=== PATIENT | female | born 1960 | race Caucasian/White ===

== ENCOUNTER → 2022-02-04 | Outpatient (CLI) | payer BC, SELFPAY ==
[2022-02-04 12:35] LABS: Absolute Neutrophil Count 3.3 X10^3/uL (2.0-7.7); Basophil# 0.05 X10^3/uL; Basophil% 0.8 % (0-1); Eosinophil# 0.11 X10^3/uL; Eosinophils% 1.8 % (0-5); Hematocrit 43.9 % (37-47); Hemoglobin 14.3 g/dL (12.0-15.0); Lymphocyte % 33.4 % (19-41); Mean Corp Hgb Conc 32.6 g/dL (32-36); Mean Corpuscular Hgb 29.8 pg (27.0-32.0); Mean Corpuscular Volume 91.5 fL (81-99); Mean Platelet Vol. 10.6 fl (6.2-12.0); Monocyte# 0.46 X10^3/uL; Monocyte% 7.7 % (0-10); NRBC Flagged by Analyzer 0 % (0-5); Neutrophil # 3.34 X10^3/uL (2.7-7.7); Platelet Count 274 K/mm3 (150-450); RBC Distribution Width CV 11.9 % (11.6-14.6); RBC Distribution Width SD 39.5 fl (35.1-43.9)
[2022-02-04 12:58] LABS: AST(SGOT) 15 U/L (15-37); Alanine Aminotransfer ALT/SGPT 35 U/L (13-56); Albumin, Serum 4.2 g/dL (3.2-5.0); Alkaline Phosphatase 67 U/L (45-117); Anion Gap 5 (5-15); BUN 17 mg/dL (7-18); BUN/Creat Ratio 21.2 RATIO (10-20); Calcium,Total 9.5 mg/dL (8.5-10.1); Chloride 104 mmol/L (98-107); Cholesterol 247 mg/dL (200); EST Glomerular Filtration Rate 78 mL/min (>60); Est Glom Filt Rate - Afr Amer 94 mL/min (>60); Glucose 104 mg/dL (74-106); High Density Lipoprotein 51 mg/dL; Protein, Total 8.2 g/dL (6.4-8.2); Sodium Level 140 mmol/L (136-145); Thyroid Stim Hormone (TSH) 1.91 uIU/mL (0.358-3.74); Triglycerides 119 mg/dL; Very Low Density Lipoprotein 24 mg/dL (5-40)
[2022-02-04 16:57] LABS: Vitamin D,25 Hydroxy 43.4 ng/mL
== END | disposition home or self-care (01) ==
LOC: MTLAB 09:45
PROVIDERS: PCP Family Medicine; Referring Provider Family Medicine; Visit Provider Family Medicine
DX: Z00.00 Encounter for general adult medical examination without abnormal findings (principal); R53.83 Other fatigue; E55.9 Vitamin D deficiency, unspecified
CPT/HCPCS: 36415; 80053; 80061; 82306; 84443; 85025

== ENCOUNTER → 2022-12-13 | Outpatient (CLI) | payer BC, SELFPAY ==
[2022-12-13 18:22] LABS: Ferritin 106 ng/mL (8-252)
[2022-12-15 14:09] LABS: Zinc, WHOLE BLOOD 616 ug/dL (440-860)
== END | disposition home or self-care (01) ==
LOC: BFHLAB 14:24
PROVIDERS: PCP Family Medicine; Referring Provider Family Medicine; Visit Provider Family Medicine
DX: L60.9 Nail disorder, unspecified (principal); E63.9 Nutritional deficiency, unspecified
CPT/HCPCS: 36415; 82728; 84630

== ENCOUNTER → 2024-03-12 | Outpatient (CLI) | payer BC, SELFPAY ==
--- NOTE | 2024-03-12 17:22 | RAD_ITS ---
STUDY: X-RAY - RIGHT FOOT CLINICAL: Female, 63 years old. PAIN TECHNIQUE: 3 view(s) of the foot. COMPARISON: None. FINDINGS: Normal talus, calcaneus, and tarsal bones. Small plantar calcaneal enthesophyte. 5 mm type I accessory navicular bone. Normal visualized subtalar, talonavicular, calcaneocuboid, tarsal and tarsometatarsal articulations. Normal metatarsi. There is degenerative arthrosis of the metatarsophalangeal joint of the hallux with a hallux valgus deformity. Normal tibial and fibular sesamoid bones. Normal interphalangeal joint of the great toe. Normal phalanges of the great toe. Normal second through fifth metatarsophalangeal joints. Normal interphalangeal joints and phalanges of the lesser toes. The soft tissue structures are unremarkable. RAD/Foot min 3 Views IMPRESSION: Mild hallux valgus deformity. Electronically Signed: Liam Gomes MD at 12:31 EDT ,
== END | disposition home or self-care (01) ==
LOC: MTRAD 17:20
PROVIDERS: PCP Family Medicine; Referring Provider Podiatrist; Visit Provider Podiatrist
DX: M20.11 Hallux valgus (acquired), right foot (principal)
CPT/HCPCS: 73630

== ENCOUNTER → 2024-08-15 | Outpatient (CLI) | payer BC, SELFPAY ==
[2024-08-15 18:04] LABS: Uric Acid 4.7 mg/dL (2.6-6.0)
== END | disposition home or self-care (01) ==
LOC: BFHLAB 16:07
PROVIDERS: PCP Family Medicine; Visit Provider Family Medicine
DX: M10.9 Gout, unspecified (principal)
CPT/HCPCS: 36415; 84550

== ENCOUNTER 2025-02-14 19:56 | Emergency (ER) | payer BC, SELFPAY ==
[2025-02-14 19:57] VITALS: BP 166/135; PULSE 155; RESP 18; TEMP 36.8; O2SAT 99; BMI 30.4
[2025-02-14 21:00] VITALS: BP 141/75; PULSE 94; O2SAT 100
--- OUTSIDE RECORDS SUMMARY | 2025-02-14 21:01 | XMS RPT_ITS | CCD ---
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 Name Role Phone Unavailable Primary Care Provider UnavailJustine Mike Referring Unavailable Justine Walsh Attending Unavailable Dylon Saab Primary Care Unavailable Dylon Saab Attending Unavailable Dylon Saab Primary Care Unavailable Medications Current Medications Medication Drug Class(es) Dates Sig (Normalized) Sig (Original) nitrofurantoin, macrocrystals 25 mg / nitrofurantoin, monohydrate 75 mg oral capsule (2 sources) Nitrofuran Antibacterial Start: 12-25-2022 End: 12-30-2022 take 1 capsule by mouth twice daily nitrofurantoin monohydrate and macrocrystal (MACROBID) 100 mg capsule Take 1 capsule by mouth twice daily for 5 days. 10 capsule 0 12/25/2022 12/30/2022 Active Comment on above: Take 1 capsule by [facility] twice daily for 5 days. Completed/Discontinued Medications Medication Drug Class(es) Dates Sig (Normalized) Sig (Original) allopurinol 100 mg oral tablet (2 sources) Xanthine Oxidase Inhibitor Start: 11-03-2022 take 1 tablet by mouth once daily allopurinol (ZYLOPRIM) 100 mg tablet Take 100 mg by mouth once daily. 0 11/03/2022 Active Comment on above: Take 100 mg by mouth once daily. escitalopram 20 mg oral tablet (2 sources) Serotonin Reuptake Inhibitor Start: 12-02-2022 take 1 tablet by mouth once daily at bedtime escitalopram oxalate (LEXAPRO) 20 mg tablet Take 20 mg by mouth daily at bedtime. 0 12/02/2022 Active Comment on above: Take 20 mg by mouth daily at bedtime. terbinafine 250 mg oral tablet (2 sources) Allylamine Antifungal Start: 12-13-2022 take 1 tablet by mouth once daily terbinafine HCl (LAMISIL) 250 mg tablet Take 250 mg by mouth once daily. 0 12/13/2022 Active Comment on above: Take 250 mg by mouth once daily. Problems Problem Classification Problem Date Documented Da te Episodic/Chronic Acquired foot deformities (1 source) Hallux valgus (acquired), right foot; Translations: [Hallux valgus (acquired), right foot] Onset: 04-04-2024 Chronic Fever of unknown origin (1 source) Fever; Translations: [Fever, unspecified] Episodic Gout and other crystal arthropathies (1 source) Gout, unspecified; Translations: [Gout, unspecified] Onset: 09-09-2024 Chronic Results Test Name Value Interpretation Reference Range Facility Uric Acidon 08-15-2024 URIC 4.7 mg/dL Normal 2.6-6.0 [facility] Comment on above: Result Comment: The drugs N-Acetylcysteine and Metamizole may falsely depress this assay. Performed By: #### L [id number] #### [facility] [address] [place], [address] Foot min 3 Viewson 4 Foot min 3 Views [facility] Imaging Services [address] [place] [address] Foot min 3 Views MR#: [id number] Acct: [id number] Name: ROSALINE MACIAS Rep #: [id number] : 1960 F 63 From: Liam Gomes MD PCP: Dr. Dylon Saab, DO Status: REG CLI Study: Foot min 3 Views Date of Exam: 03/12/24 Exam# [id number] Ordering Dr: Justine Walsh Reji [id number] STUDY: X-RAY - RIGHT FOOT CLINICAL: Female, 63 years old. PAIN TECHNIQUE: 3 view(s) of the foot. COMPARISON: None. FINDINGS: Normal talus, calcaneus, and tarsal bones. Small plantar calcaneal enthesophyte. 5 mm type I accessory navicular bone. Normal visualized subtalar, talonavicular, calcaneocuboid, tarsal and tarsometatarsal articulations. Normal metatarsi. There is degenerative arthrosis of the metatarsophalangeal joint of the hallux with a hallux valgus deformity. Normal tibial and fibular sesamoid bones. Normal interphalangeal joint of the great toe. Normal phalanges of the great toe. Normal second through fifth metatarsophalangeal joints. Normal interphalangeal joints and phalanges of the lesser toes. The soft tissue structures are unremarkable. RAD/Foot min 3 Views IMPRESSION: Mild hallux valgus deformity. Electronically Signed: Liam Gomes MD at 12:31 EDT , CC: JOE Walsh; Dr. Dylon Saab DO Perfume Maker: Signed Normal [facility] 12-26-2022 Brenco[facility] Telephone (UCWSTR) -------- ROSALINE MACIAS ([id number]) 1960 F Date Time Provider Department 12/26/22 [facility]ARTIN K[facility] During your visit today, we recorded the following information about you: DENITA Zamora 12/26/2022 2:03 PM Signed Please let patient know urine culture came back negative for bacterial growth. She may stop antibiotic. Please follow-up with PCP for continued fevers. Herminio Johnston 12/26/2022 2:14 PM Signed Patient given results and verbalized understanding of instructions given. Herminio Johnston Allergies As of Date: 12/26/2022 (Not on File) Date Reviewed: 12/25/2022 Reviewed by: Herminio Johnston - Fully Assessed Reason for Visit: Results [95] Prescriptions as of 12/26/2022 - allopurinol (ZYLOPRIM) 100 mg tablet Take 100 mg by mouth once daily. - escitalopram oxalate (LEXAPRO) 20 mg tablet Take 20 mg by mouth daily at bedtime. - terbinafine HCl (LAMISIL) 250 mg tablet Take 250 mg by mouth once daily. - nitrofurantoin monohydrate and macrocrystal (MACROBID) 100 mg capsule Take 1 capsule by mouth twice daily for 5 days. Problem List As Of Date: 12/26/2022 (None) Encounter Status:Closed by HERMINIO JOHNSTON on 12/26/22 Normal [facility] Bacteria Ur Culton 3 Bacteria identified Cx Nom (U) ORGANISM ID: 1 10,000 -<50,000 CFU/ml Normal urogenital weston Normal [facility] Comment on above: Performed By: #### 6 30-4 #### [facility] CLIA [id number] [address] [place] [address] OF [facility] CNOVon 12-25-2022 CNOV Office Visit (UCWSTR ) -------- ROSALINE MACIAS ([id number]) 1960 F Date Time Provider Department 12/25/22 1:15 PM MARTIN KAN [facility] During your visit today, we recorded the following information about you: Temperature Pulse Respiration Blood pressure 98.5 degrees 104/minute 16/minute 124/80 Weight 74.8 kg DENITA Zamora 12/25/2022 1:40 PM Signed This note was created using Hatchriter. Subjective Rosaline Macias is a 62 year old female. HPI 62-year-old female presents for intermittent fevers for the past 3 days. Patient states that she has been having fevers on and off for the past 3 days. Tmax 103 ?F. Last had a fever yesterday. No fever today. Temperature 98.5 ?F here. Has not taken any Tylenol or Motrin today. Patient denies any cough, congestion, ear pain, sore throat or URI symptoms. No abdominal pain, vomiting or diarrhea. She states she was started on terbinifine about a week ago for thumbnail fungus, and had some nausea and decreased appetite with that medication, but that is now improved. Otherwise, she has no symptoms associated with her fever other than some chills. No urinary complaints. No sick contacts. No known exposure to COVID. No past medical history on file. No past surgical history on file. ALLERGIES Patient has no allergy information on record. MEDICATIONS allopurinol (ZYLOPRIM) 100 mg tablet Take 100 mg by mouth once daily. escitalopram oxalate (LEXAPRO) 20 mg tablet Take 20 mg by mouth daily at bedtime. terbinafine HCl (LAMISIL) 250 mg tablet Take 250 mg by mouth once daily. No family history on file. Review of Systems Constitutional: Positive for chills and fever. HENT: Negative for congestion, ear pain and sore throat. Respiratory: Negative for cough and shortness of breath. Cardiovascular: Negative for chest pain. Gastrointestinal: Positive for nausea. Negative for abdominal pain, diarrhea and vomiting. Objective BP 124/80 Pulse 104 Temp 36.9 ?C (98.5 ?F) Resp 16 Wt 74.8 kg (164 lb 12.8 oz) SpO2 97% Physical Exam Vitals and nursing note reviewed. Constitutional: General: She is not in acute distress. Appearance: Normal appearance. She is not toxic-appearing. HENT: Right Ear: Tympanic membrane and ear canal normal. Left Ear: Tympanic membrane and ear canal normal. Nose: Nose normal. Mouth/Throat: Mouth: Mucous membranes are moist. Pharynx: No oropharyngeal exudate or posterior oropharyngeal erythema. Eyes: Conjunctiva/sclera: Conjunctivae normal. Cardiovascular: Rate and Rhythm: Normal rate and regular rhythm. Pulmonary: Effort: Pulmonary effort is normal. Breath sounds: Normal breath sounds. Abdominal: General: Abdomen is flat. Palpations: Abdomen is soft. Tenderness: There is no abdominal tenderness. There is no right CVA tenderness, left CVA tenderness or guarding. Neurological: Mental Status: She is alert. Assessment and Plan ASSESSMENT/PLAN: 1. Fever, unspecified fever cause - ICD9: 780.60, ICD10: R50.9 - UA DIP, URINE (POC) -UA reveals small blood and trace leuk esterase. We will send urine for culture. -Rx for Macrobid. -Unsure of cause of fever. She is afebrile today. Advised Tylenol/Motrin as needed for fever. May be due to possible UTI? but unsure as patient is having no urinary symptoms at this point. We are treating UTI with Macrobid. - Patient will need follow-up with PCP this week if fevers continue. She understands. -Declines COVID/flu test. -Abdomen is soft and nontender, no CVA tenderness. Low suspicion for acute surgical abdomen or pyelonephritis at this time. - URINE CULTURE Diagnosis and treatment plan were discussed and questions were answered to the patient's satisfaction. Pt acknowledged understanding of concepts and follow up plan. Specific signs and symptoms that would indicate the need for higher level of care were discussed in detail warranting prompt ER evaluation. DENITA Zamora Allergies As of Date: 12/25/2022 (Not on File) Date Reviewed: 12/25/2022 Reviewed by: Herminio Johnston - Fully Assessed Reason for Visit: Fever [47] Cmt: x 4 days, started terbinafine on Monday, symptoms started but no fever Primary Visit Diagnosis:Fever, unspecified fever cause [R50.9] Order(s):UA DIP, URINE (POC) [[id number]] Order #: [id number] #:[id number] 210-LAB URINE CULTURE [SQURCUL] Order #: [id number] FUTURE nitrofurantoin monohydrate and macrocrystal (MACROBID) 100 mg capsuleTake 1 capsule by mouth twice daily for 5 days.Disp: 10 capsuleRfl: 0 URINE CULTURE [SQURCUL] Order #: [id number]. #:[id number] Prescriptions as of 12/25/2022 - allopurinol (ZYLOPRIM) 100 mg tablet Take 100 mg by mouth once daily. - escitalopram oxalate (LEXAPRO) 20 mg tablet Take 20 mg by mouth daily at bedtime. - terbinafine HCl (LAMISIL) 250 mg tablet Take (more content not included)... Normal [facility] UA DIP, URINE (POC)on 2022 BILIRUBIN UA (POCT) Negative Negative [facility] CLARITY UA (POCT) Clear [facility] COLOR UA (POCT) Yellow [facility] GLUCOSE UA (POCT) Negative Negative mg/dL [facility] HEMOGLOBIN/BLOOD UA (POCT) Small Abnormal Negative [facility] KETONE UA (POCT) Negative Negative mg/dL [facility] LEUKOCYTES UA (POCT) Trace Abnormal Negative [facility] NITRITE UA (POCT) Negative Negative [facility] PH UA (POCT) 5.5 4.5 - 8.0 [facility] Protein Ql (U) Negative Negative mg/dL [facility] SPECIFIC GRAVITY UA (POCT) <=1.005 Abnormal 1.005 - 1.030 [facility] UROBILINOGEN UA (POCT) 0.2 E.U./dL Normal E.U./dL [facility] Absolute lymphocyte counton 02-04-2022 Lymphocytes Auto (Unsp spec) [#/Vol] 2.00 10*3/uL 0.83-4.51 [facility] Work Phone: Basophil percentageon 2021 Basophils/100 WBC (Bld) 0.8 % 0-1 [facility] Work Phone: Bilirubin [Mass/Vol] 0.30 mg/dL 0.20-1.00 [facility] Work Phone: Comment on above: For patients on eltr ombopag therapy, use of [employer] TBIL is not recommended. Chloride [Moles/Vol] 104 mmol/L 98-107 [facility] Work Phone: Cholesterol [Mass/Vol] 247 mg/dL <200 [facility] Work Phone: Comment on above: <200 mg/dL Desirable 200-240 mg/dL Borderline >240 mg/dL High Risk Eosinophils/100 WBC (Bld) 1.8 % 0-5 [facility] Work Phone: Glucose [Mass/Vol] 104 mg/dL 74-106 [facility] Work Phone: Comment on above: Fasting Glucose resu lt from 100 to 125 mg/dL suggests IMPAIRED HOMEOSTASIS per A.D.A. criteria. Neutrophils (Bld) [#/Vol] 3.3 10*3/uL 2.0-7.7 [facility] Work Phone: Neutrophils/100 WBC (Bld) 56.0 % 47-70 [facility] Work Phone: Potassium [Moles/Vol] 4.0 mmol/L 3.5-5.1 [facility] Work Phone: Protein [Mass/Vol] 8.2 g/dL 6.4-8.2 [facility] Work Phone: Sodium [Moles/Vol] 140 mmol/L 136-145 [facility] Work Phone: Triglyceride [Mass/Vol] 119 mg/dL <199 [facility] Work Phone: Comment on above: The drugs N-Acetylcy steine and Metamizole may falsely depress this assay.Serum Triglycerides Reference Interval Normal <150 mg/dL Borderline high 150 - 199 mg/dL High 200 - 499 mg/dL Very High > or = 500 mg/dL WBC (Bld) [#/Vol] 6.0 10*3/uL 4.4-11.0 [facility] Work Phone: Blood erythrocytes count (nu mber/volume)on 02-04-2022 RBC (Bld) [#/Vol] 4.80 10*6/uL 4.2-5.4 [facility] Work Phone: Blood hemoglobin measurement (mass/volume)on 02-04-2022 Hemoglobin (Bld) [Mass/Vol] 14.3 g/dL 12.0-15.0 [facility] Work Phone: Blood lymphocytes/100 leukoc yteson 02-04-2022 Lymphocytes/100 WBC (Bld) 33.4 % 19-41 [facility] Work Phone: Blood monocytes/100 leukocyt eson 02-04-2022 Monocytes/100 WBC (Bld) 7.7 % 0-10 [facility] Work Phone: Blood platelet mean volumeon 02-04-2022 Platelet mean volume (Bld) [Entitic vol] 10.6 fL 6.2-12.0 [facility] Work Phone: Determination of erythrocyte mean corpuscular volume (MCV)on 02-04-2022 MCV (RBC) [Entitic vol] 91.5 fL 81-99 [facility] Work Phone: Hematocrit Auto (Bld) [Volum e fraction]on 02-04-2022 Hematocrit (Bld) [Volume fraction] 43.9 % 37-47 [facility] Work Phone: Laboratory - Chemistry and C hemistry - challengeon 02-04-2022 ALP [Catalytic activity/Vol] 67 U/L 45-117 [facility] Work Phone: ALT [Catalytic activity/Vol] 35 U/L 13-56 [facility] Work Phone: CO2 [Moles/Vol] 31.0 mmol/L 21.0-32.0 [facility] Work Phone: Globulin (S) [Mass/Vol] 4.0 g/dL 2.2-4.2 [facility] Work Phone: Urea nitrogen/Creatinin e [Mass ratio] 21.2 mg/mg 10-20 [facility] Work Phone: Laboratory - Hematology and Cell countson 02-04-2022 Erythrocyte distribution width (RBC) [Entitic vol] 39.5 fL 35.1-43.9 [facility] Work Phone: Erythrocyte distribution width (RBC) [Ratio] 11.9 % 11.6-14.6 [facility] Work Phone: Immature granulocytes/100 WBC (Bld) 0.300 % 0.0-0.9 [facility] Work Phone: Comment on above: IG% - Immature Granu locytes (promyelocytes, myelocytes and metamyelocytes) > 1% indicates that a LEFT SHIFT is Present. MCH (RBC) [Entitic mass] 29.8 pg 27.0-32.0 [facility] Work Phone: Nucleated RBC/100 WBC (Bld) [Ratio] 0 % 0-5 [facility] Work Phone: MCHC Auto (RBC) [Mass/Vol]on 02-04-2022 MCHC (RBC) [Mass/Vol] 32.6 g/dL 32-36 [facility] Work Phone: No Panel Informationon 02-04 Estimated GFR (MDRD) Amer 94 mL/min >60 [facility] Work Phone: Comment on above: GFR Calc Estimated GFR (MDRD) Non-Af Amer 78 mL/min >60 [facility] Work Phone: Comment on above: Non- GFR Calc Thyroid Stimulating Hormone (TSH) 1.91 uIU/mL 0.358-3.74 [facility] Work Phone: Vitamin D 25-Hydroxy 43.4 ng/mL [facility] Work Phone: Comment on above: Vitamin D 25(OH) Sta tus Range Deficiency <20 ng/mL (50nmol/L) Insufficiency 20 - 30 ng/mL (50 - 75 nmol/L) Sufficiency 30 - 100 ng/mL (75 - 250 nmol/L) Toxicity >100 ng/mL (>250 nmol/L) Platelets bldon 02-04-2022 Platelets (Bld) [#/Vol] 274 10*3/uL 150-450 [facility] Work Phone: Serum or plasma albumin mary alice urement (mass/volume)on 02-04-2022 Albumin [Mass/Vol] 4.2 g/dL 3.2-5.0 [facility] Work Phone: Serum or plasma albumin/glob ulin mass ratioon 02-04-2022 Albumin/Globulin [Mass ratio] 1.0 {ratio} 0.9-2.4 [facility] Work Phone: Serum or plasma calcium mary alice urement (mass/volume)on 02-04-2022 Calcium [Mass/Vol] 9.5 mg/dL 8.5-10.1 [facility] Work Phone: Serum or plasma cholesterol in HDL measurement (mass/volume)on 02-04-2022 Cholesterol in HDL [Mass/Vol] 51 mg/dL >40 [facility] Work Phone: Comment on above: The drugs N-Acetylcy steine and Metamizole may falsely depress this assay. Reference Range HDL <40 mg/dL Low HDL Cholesterol HDL >or= 60 mg/dL High HDL Cholesterol Serum or plasma cholesterol in VLDL measurement (mass/volume)on 02-04-2022 Cholesterol in VLDL [Mass/Vol] 24 mg/dL 5-40 [facility] Work Phone: Serum or plasma creatinine m easurement (mass/volume)on 02-04-2022 Creatinine [Mass/Vol] 0.80 mg/dL 0.55-1.02 [facility] Work Phone: Comment on above: The validity of the calculated GFR & GFRAA in patients over 70 years has not been determined. Clinical correlation is essential. Serum or plasma low density lipoprotein (LDL) cholesterol measurement (mass/volume)on 02-04-2022 Cholesterol in LDL [Mass/Vol] 172 mg/dL 0-130 [facility] Work Phone: Serum or plasma urea nitroge n measurement (mass/volume)on 02-04-2022 Urea nitrogen [Mass/Vol] 17 mg/dL 7-18 [facility] Work Phone: Thin prep Papanicolaou smear with manual screeningon 02-04-2022 Thin prep Papanicolaou smear with manual screening 15 U/L 15-37 [facility] Work Phone: Thin prep Papanicolaou smear with manual screening 5 5-15 [facility] Work Phone: Vital Signs Date Time Vital Sign Value Performing Clinician Faci lity 12-25-2022 13:21-0400 Body temperature 98.49 [degF] Krislyn Aberegg PA Work Phone: [facility] 12-25-2022 13:21-0400 Body weight 74.75 kg Krislyn Aberegg PA Work Phone: [facility] 12-25-2022 13:21-0400 Diastolic blood pressure 80 mm[Hg] Krislyn Aberegg PA Work Phone: [facility] 12-25-2022 13:21-0400 Heart rate 104 /min Krislyn Aberegg PA Work Phone: [facility] 12-25-2022 13:21-0400 Respiratory rate 16 /min Krislyn Aberegg PA Work Phone: [facility] 12-25-2022 13:21-0400 SaO2% (BldA) [Mass fraction] 97 % Krislyn Aberegg PA Work Phone: [facility] 12-25-2022 13:21-0400 Systolic blood pressure 124 mm[Hg] Krislyn Aberegg PA Work Phone: [facility] Encounters Encounter Date Encounter Type Care Provider Facility Start: 08-15-2024 End: 08-15-2024 ambulatory [facility] Facility:[facility] Start: 03-12-2024 End: 03-12-2024 ambulatory [facility] Facility:[facility] Start: 12-26-2022 Telephone encounter Lennoxn P Aberegg PA Work Phone: [facility] Comment on above: Results Start: 12-25-2022 End: 12-25-2022 ambulatory Facility:[facility] Start: 12-25-2022 End: 12-25-2022 Patient encounter procedure Krissreen P Aberegg PA Work Phone: [facility] Comment on above: Fever, unspecified f ever cause (Primary Dx) Start: 02-04-2022 End: 02-04-2022 Patient encounter procedure [facility] [place] Procedures Date Procedure Procedure Detail Performing Clinician Start: 12-25-2022 Urnls dip stick/tabl et rgnt auto w/o microscopy Martin BARGER Work Phone: Plan of Treatment Date Care Activity Detail Author Start: 03-31-2023 Influenza vaccination INFLUENZ A (Season Ended) [facility] Start: 12-25-2022 End: 02-24-2023 Bacteria identified in Urine by Culture URINE CULTURE Microbiology Routine Fever, unspecified fever cause Expected: 12/25/2022, Expires: 02/24/2023 [facility] Work Phone: Comment on above: Expected: 12/25/2022 , Expires: 02/24/2023 Start: 07-31-2022 DEPRESSION ASSESSMENT DEPRESSION ASS ESSMENT [facility] Start: 2012 SHINGRIX VACCINE (1 of 2) SHINGRIX VACCINE (1 of 2) [facility] Start: 2007 COLOGUARD (FIT-DNA) COLOGUARD (FIT-D NA) [facility] Start: 2007 Colonoscopy COLONOSCOPY [facility] Start: 2007 COLORECTAL CANCER SCREENING COLORECTAL CANCER SCREENING [facility] Start: [address] COLONOGRAPHY [facility] Start: 2007 DIABETES SCREEN DIABETES SCREEN [facility] Start: 2007 FECAL OCCULT BLOOD FECAL OCCULT BLOO D [facility] Start: 2007 LIPID SCREEN LIPID SCREEN [facility] Start: 2007 SIGMOIDOSCOPY SIGMOIDOSCOPY [facility] Start: 2002 Mammography MAMMOGRAM [facility] Start: 1992 HPV TESTING HPV TESTING [facility] Start: 1983 PAP TESTING PAP TESTING [facility] Start: 1981 Urine microalbumin profile DTAP,TDAP,TD (1 - Tdap) [facility] Start: 1980 HEPATITIS C SCREENING HEPATITIS C SC REENING [facility] Start: 1980 HIV SCREENING HIV SCREENING [facility] Start: 03-03-1963 COVID-19 VACCINE (#1) COVID-19 VACCI NE (#1) [facility] Payers Date Payer Category Payer Self-pay 2022 Unknown [employer] PPO 2022-Present [phone] [address] [place] [address] PPO [id number] 2019 Unknown [id number] 2016 Unknown [id number] Unknown [id number] Unknown [id number] Social History Date Type Detail Facility Tobacco smoking status NHIS Unknown if ever smoked [facility] Work Phone: Start: 1960 Sex Assigned At Female [facility] Work Phone: Tobacco smoking status NVIS Tobacco smoking consumption unknown [facility] Work Phone: Start: 1960 Sex Assigned At Not on file [facility] Clinic Note 12-26-2022 Telephone Encounter - Herminio Johnston - 12/26/2022 2:14 PM EDTTelephone Encounter - DENITA Zamora - 12/26/2022 2:03 PM EDT Note Date & Type Note Facility 12-26-2022 Miscellaneous Notes Formattin g of this note might be different from the original. Patient given results and verbalized understanding of instructions given. Herminio Johnston Please let patient know urine culture came back negative for bacterial growth. She may stop antibiotic. Please follow-up with PCP for continued fevers. documented in this encounter [facility] Progress note 12-25-2022 Note Date & Type Note Facility 12-25-2022 Note HNO ID: [id number] Author: DENITA Zamora Service: ? Author Type: Physician Nursing Home Social Worker Type: Progress Notes Filed: 12/25/2022 1:40 PM Note Text: This note was created using Hatchriter. Subjective Rosaline Macias is a 62 year old female. HPI 62-year-old female presents for intermittent fevers for the past 3 days. Patient states that she has been having fevers on and off for the past 3 days. Tmax 103 ?F. Last had a fever yesterday. No fever today. Temperature 98.5 ?F here. Has not taken any Tylenol or Motrin today. Patient denies any cough, congestion, ear pain, sore throat or URI symptoms. No abdominal pain, vomiting or diarrhea. She states she was started on terbinifine about a week ago for thumbnail fungus, and had some nausea and decreased appetite with that medication, but that is now improved. Otherwise, she has no symptoms associated with her fever other than some chills. No urinary complaints. No sick contacts. No known exposure to COVID. No past medical history on file. No past surgical history on file. ALLERGIES Patient has no allergy information on record. MEDICATIONS allopurinol (ZYLOPRIM) 100 mg tablet Take 100 mg by mouth once daily. escitalopram oxalate (LEXAPRO) 20 mg tablet Take 20 mg by mouth daily at bedtime. terbinafine HCl (LAMISIL) 250 mg tablet Take 250 mg by mouth once daily. No family history on file. Review of Systems Constitutional: Positive for chills and fever. HENT: Negative for congestion, ear pain and sore throat. Respiratory: Negative for cough and shortness of breath. Cardiovascular: Negative for chest pain. Gastrointestinal: Positive for nausea. Negative for abdominal pain, diarrhea and vomiting. Objective BP 124/80 Pulse 104 Temp 36.9 ?C (98.5 ?F) Resp 16 Wt 74.8 kg (164 lb 12.8 oz) SpO2 97% Physical Exam Vitals and nursing note reviewed. Constitutional: General: She is not in acute distress. Appearance: Normal appearance. She is not toxic-appearing. HENT: Right Ear: Tympanic membrane and ear canal normal. Left Ear: Tympanic membrane and ear canal normal. Nose: Nose normal. Mouth/Throat: Mouth: Mucous membranes are moist. Pharynx: No oropharyngeal exudate or posterior oropharyngeal erythema. Eyes: Conjunctiva/sclera: Conjunctivae normal. Cardiovascular: Rate and Rhythm: Normal rate and regular rhythm. Pulmonary: Effort: Pulmonary effort is normal. Breath sounds: Normal breath sounds. Abdominal: General: Abdomen is flat. Palpations: Abdomen is soft. Tenderness: There is no abdominal tenderness. There is no right CVA tenderness, left CVA tenderness or guarding. Neurological: Mental Status: She is alert. Assessment and Plan ASSESSMENT/PLAN: 1. Fever, unspecified fever cause - ICD9: 780.60, ICD10: R50.9 - UA DIP, URINE (POC) -UA reveals small blood and trace leuk esterase. We will send urine for culture. -Rx for Macrobid. -Unsure of cause of fever. She is afebrile today. Advised Tylenol/Motrin as needed for fever. May be due to possible UTI? but unsure as patient is having no urinary symptoms at this point. We are treating UTI with Macrobid. - Patient will need follow-up with PCP this week if fevers continue. She understands. -Declines COVID/flu test. -Abdomen is soft and nontender, no CVA tenderness. Low suspicion for acute surgical abdomen or pyelonephritis at this time. - URINE CULTURE Diagnosis and treatment plan were discussed and questions were answered to the patient's satisfaction. Pt acknowledged understanding of concepts and follow up plan. Specific signs and symptoms that would indicate the need for higher level of care were discussed in detail warranting prompt ER evaluation. DENITA Zamora [facility] History of Present illness Narrative 12-25-2022 DENITA Zamora - 12/25/2022 1:29 PM EDT Note Date & Type Note Facility 12-25-2022 History of Presen t illness Narrative This note was created using [employer]. Subjective Rosaline Macias is a 62 year old female. HPI 62-year-old female presents for intermittent fevers for the past 3 days. Patient states that she has been having fevers on and off for the past 3 days. Tmax 103 F. Last had a fever yesterday. No fever today. Temperature 98.5 F here. Has not taken any Tylenol or Motrin today. Patient denies any cough, congestion, ear pain, sore throat or URI symptoms. No abdominal pain, vomiting or diarrhea. She states she was started on terbinifine about a week ago for thumbnail fungus, and had some nausea and decreased appetite with that medication, but that is now improved. Otherwise, she has no symptoms associated with her fever other than some chills. No urinary complaints. No sick contacts. No known exposure to COVID. No past medical history on file. No past surgical history on file. ALLERGIES Patient has no allergy information on record. MEDICATIONS allopurinol (ZYLOPRIM) 100 mg tablet Take 100 mg by mouth once daily. escitalopram oxalate (LEXAPRO) 20 mg tablet Take 20 mg by mouth daily at bedtime. terbinafine HCl (LAMISIL) 250 mg tablet Take 250 mg by mouth once daily. No family history on file. Review of Systems Constitutional: Positive for chills and fever. HENT: Negative for congestion, ear pain and sore throat. Respiratory: Negative for cough and shortness of breath. Cardiovascular: Negative for chest pain. Gastrointestinal: Positive for nausea. Negative for abdominal pain, diarrhea and vomiting. Objective BP 124/80 Pulse 104 Temp 36.9 C (98.5 F) Resp 16 Wt 74.8 kg (164 lb 12.8 oz) SpO2 97% Physical Exam Vitals and nursing note reviewed. Constitutional: General: She is not in acute distress. Appearance: Normal appearance. She is not toxic-appearing. HENT: Right Ear: Tympanic membrane and ear canal normal. Left Ear: Tympanic membrane and ear canal normal. Nose: Nose normal. Mouth/Throat: Mouth: Mucous membranes are moist. Pharynx: No oropharyngeal exudate or posterior oropharyngeal erythema. Eyes: Conjunctiva/sclera: Conjunctivae normal. Cardiovascular: Rate and Rhythm: Normal rate and regular rhythm. Pulmonary: Effort: Pulmonary effort is normal. Breath sounds: Normal breath sounds. Abdominal: General: Abdomen is flat. Palpations: Abdomen is soft. Tenderness: There is no abdominal tenderness. There is no right CVA tenderness, left CVA tenderness or guarding. Neurological: Mental Status: She is alert. Assessment and Plan ASSESSMENT/PLAN: 1. Fever, unspecified fever cause - ICD9: 780.60, ICD10: R50.9 - UA DIP, URINE (POC) -UA reveals small blood and trace leuk esterase. We will send urine for culture. -Rx for Macrobid. -Unsure of cause of fever. She is afebrile today. Advised Tylenol/Motrin as needed for fever. May be due to possible UTI? but unsure as patient is having no urinary symptoms at this point. We are treating UTI with Macrobid. - Patient will need follow-up with PCP this week if fevers continue. She understands. -Declines COVID/flu test. -Abdomen is soft and nontender, no CVA tenderness. Low suspicion for acute surgical abdomen or pyelonephritis at this time. - URINE CULTURE Diagnosis and treatment plan were discussed and questions were answered to the patient's satisfaction. Pt acknowledged understanding of concepts and follow up plan. Specific signs and symptoms that would indicate the need for higher level of care were discussed in detail warranting prompt ER evaluation. DENITA Zamora documented in this encounter [facility] Evaluation note Note Date & Type Note Facility Evaluation note No assessment information availa [facility] Work Phone: Evaluation note Note Date & Type Note Facility Evaluation note Diagnosis Fever, unspecified fever cause- Primary documented in this encounter [facility] Summary Purpose Family History No Family History Records FoundNo Family History Records Found Advance Directives No Advanced Directives Records FoundNo Advanced Directives Records Found Additional Source Comments Goals (unrecognized section and content) Goals may be documented in a n alternate section INFORMATION SOURCE (unrecogn ized section and content) DATE CREATED AUTHOR 01/06/2023 [facility] DATE CREATED AUTHOR 'S ORGANIZ ATION 09/10/2024 [facility] Source Comments (unrecognize d section and content) In the event this informatio n is protected by the Federal Confidentiality of Alcohol and Drug Abuse Patient Records regulations: The Federal rules restrict any use of the information to criminally investigate or prosecute any alcohol or drug abuse patient[facility] the event this information is protected by the Federal Confidentiality of Alcohol and Drug Abuse Patient Records regulations: The Federal rules restrict any use of the information to criminally investigate or prosecute any alcohol or drug abuse patient.[facility] Reason for Visit (unrecogniz ed section and content) Reason Comments Fever x 4 days, started te rbinafine on Monday, symptoms started but no fever Reason Comments Results FOR RECORDS PERTAINING TO PATIENTS WHO ARE OR HAVE BEEN ENROLLED IN A CHEMICAL DEPENDENCY/SUBSTANCEABUSE PROGRAM, SOME INFORMATION MAY BE OMITTED. This clinical summary was aggregated from multiple sources. Caution should be exercised in using it in the provision of clinical care. This summary normalizes information from multiple sources, and as a consequence, information in this document may materially change the coding, format and clinical context of patient data. In addition, data may be omitted in some cases. CLINICAL DECISIONS SHOULD BE BASED ON THE PRIMARY CLINICAL RECORDS. [employer] provides no warranty or guarantee of the accuracy or completeness of information in this document.
--- NOTE | 2025-02-14 21:20 | RAD_ITS ---
PROCEDURE: CHEST PA AND LATERAL 02/14/2025 REASON FOR EXAM: SOB TECHNIQUE: CHEST PA AND LATERAL COMPARISON: None. FINDINGS: Lungs/Pleura: Clear. Heart/Mediastinum: Normal in size. Bones/Soft tissues: Mild degenerative changes of the thoracic spine. RAD/Chest PA and Lateral IMPRESSION: No acute cardiopulmonary disease. Reading Location: [id number]
[2025-02-14 21:28] LABS: Hematocrit 45.4 % (37-47); Hemoglobin 15.4 g/dL (12.0-15.0); Immature Granulocytes Count 0.030 X10^3/uL (0.0-0.0); Mean Corp Hgb Conc 33.9 g/dL (32-36); Mean Corpuscular Volume 89.4 fL (81-99); Mean Platelet Vol. 10.4 fl (6.2-12.0); NRBC Flagged by Analyzer 0 % (0-5); Platelet Count 316 K/mm3 (150-450); RBC Distribution Width CV 12.0 % (11.6-14.6); RBC Distribution Width SD 39.3 fl (35.1-43.9); Red Blood Count 5.08 M/mm3 (4.2-5.4); White Blood Count 10.5 K/mm3 (4.4-11.0)
[2025-02-14 21:52] LABS: D-Dimer Quantitative (DVT/PE) 0.30 FEU/ug/m (0.27-0.49)
[2025-02-14 22:00] VITALS: BP 144/81; PULSE 85; RESP 15; O2SAT 99
[2025-02-14 22:09] LABS: Anion Gap 17 (5-15); BUN 9 mg/dL (4-19); BUN/Creat Ratio 9.9 RATIO (10-20); Calcium,Total 10.6 mg/dL (7.6-11.0); Carbon Dioxide 24.7 mmol/L (21.0-32.0); Chloride 98 mmol/L (98-108); Estimated Creatinine Clearance 62.94 ml/min (50-250); Glucose 172 mg/dL (70-99); Magnesium 2.3 mg/dL (1.5-2.2); Potassium 4.1 mmol/L (3.3-5.1)
--- NOTE | 2025-02-14 22:40 | PCA ---
no old ekg
--- NOTE | 2025-02-14 22:44 | EX.ED.DYSGE1 ---
HPI History of Present Illness Chief Complaint: Palpitations Informant: patient Narrative Narrative: Patient is a 64-year-old female denies any significant past medical history but does report a long send history of intermittent palpitations. She states [address] Coreas and also a Holter monitor. States her PCP at that time thought maybe she was having SVT. Ultimately it was felt that there is nothing going on and she was told she did not need to follow-up. She states she continues to have secondary to of palpitations every few days for this whole time. She states most the time before she can even say anything the sensation is already gone away. Today however she had palpitations lasted for an hour. She states she felt mildly short of breath or winded with it. Denies any associated chest pain. Denies any swelling of her legs. Is not on any blood thinners. Is never been diagnosed with atrial flutter or any type of arrhythmia formally. Denies feeling lightheaded. Came in for further evaluation. States that she does drink 1 or 2 iced coffees a day. Also notes for the past month she has been taking a diet supplements which is [employer]. PFSH PFS Home Medications ?Medication ?Instructions ?Recorded ?Last Taken ?Type allopurinol 100 mg tablet 100 mg PO DAILY 02/14/25 Unknown History alprazolam 1 mg tablet 1 - 2 mg PO QHS PRN PRN insomnia 02/14/25 Unknown History escitalopram oxalate 20 mg tablet 20 mg PO QHS 02/14/25 Unknown History Allergy/AdvReac Type Severity Reaction Status Date / Time No Known Allergies Allergy Verified 02/14/25 19:57 Social History Smoking Status: Never smoker ROS ROS ED Constitutional Constitutional ED: Denies chills, fever(s) or sweats ENT ENT ED: Denies sore throat Cardiovascular Cardiovascular: Reports palpitations and racing heartbeat; Denies chest pain Respiratory/Chest Respiratory/Chest: Reports cough; Denies dyspnea Gastrointestinal Gastrointestinal: Denies nausea or vomiting Musculoskeletal Musculoskeletal: Denies arthralgias or myalgias Hematologic/Lymphatic Hematologic/Lymphatic: Denies easy bleeding or easy bruising EXAM Physical Exam Const Vital Signs: 02/14/25 19:57 02/14/25 21:00 02/14/25 22:00 Temperature 98.3 F Temperature Source Oral Pulse Rate 155 H 94 85 Respiratory Rate 18 15 Blood Pressure 166/135 H 141/75 H 144/81 H Blood Pressure Mean 145 97 102 Pulse Ox 99 100 99 Oxygen Delivery Method Room Air Room Air Positive well nourished and well developed General Appearance ED: well developed and NAD HEENT Reports moist mucous membranes Neck supple and no JVD Chest Wall inspection of chest normal and palpation of chest normal Resp normal respiratory effort and clear to auscultation bilaterally Auscultation: Negative for rales, rhonchi or wheezes Cardio regular rate, regular rhythm and no murmurs GI normal to inspection, nondistended, normoactive bowel sounds, non-tender and non-distended Neuro oriented x3 Sensorium / Orientation: alert Motor Exam: Negative for general weakness Psych mental status grossly normal Skin no rashes or lesions noted MDM MDM MDM Narrative Medical decision making narrative: Patient evaluated for palpitations. Initial EKG obtained upon arrival shows atrial flutter with 2 1 conduction at a rate of 148 beats per minutes. She is converted back to normal sinus rhythm and has no complaints. States she is feeling much better. There is also diffuse ST abnormalities likely some endocardial injury. By the time I evaluated she has been having this palpitations for years but is never actually been captured. Workup for undergoing cause of atrial flutter is obtained including CBC considering symptomatic anemia, BMP looking for electrolyte abnormality and TSH. Chest x-ray reviewed by myself as well as radiology does not show any acute process. Workup largely normal. She has a mildly elevated anion gap but she has a normal bicarb and normal electrolytes. She states has been drinking well. Her glucose is mildly elevated at 172. Do not think this is enough to cause DKA. She is overall well-appearing with normal vital signs. Lab work otherwise remarkable only for minimally elevated magnesium of 2.3. Patient's [id number] 2 score is 1. As a female she is low risk for stroke. Discussed that her yearly risk of stroke is 0.6%. Patient is comfortable holding off on anticoagulation at this time. Will follow-up outpatient with cardiology. Given return precautions. Patient verbalized agreement or stands plan. Discharged home in stable condition peer Lab Data Attestation: I reviewed the patient's lab results. Labs: Laboratory Results - last 24 hr 02/14/25 20:25 WBC 10.5 RBC 5.08 Hgb 15.4 H Hct 45.4 MCV 89.4 MCH 30.3 MCHC 33.9 RDW Std Deviation 39.3 RDW Coeff of Ramy 12.0 Plt Count 316 MPV 10.4 Immature Gran % (Auto) 0.300 Neut % (Auto) 57.4 Lymph % (Auto) 34.2 [place] % (Auto) 5.5 Eos % (Auto) 1.8 Baso % (Auto) 0.8 Absolute Neuts (auto) 6.0 Absolute Lymphs (auto) 3.58 Nucleated RBC % 0 D-Dimer Quant (PE/DVT) 0.30 Sodium 140 Potassium 4.1 Chloride 98 Carbon Dioxide 24.7 Anion Gap 17 H BUN 9 Creatinine 0.95 Estim Creat Clear Calc 62.94 Est GFR (MDRD) Non-Af 67 BUN/Creatinine Ratio 9.9 L Glucose 172 H Calcium 10.6 Magnesium 2.3 H TSH 3.760 Radiography Diagnostic Testing: Clinical Impression(s) from Imaging Studies Chest X-Ray 02/14/25 21:20 IMPRESSION: No acute cardiopulmonary disease. Reading Location: [facility] Rhythm Strip Rhythm Strip: Atrial flutter Rate: 148 Ectopy: None EKG Initial EKG: Attestation: I personally reviewed and interpreted this EKG as follows: Interpretation: Atrial Flutter Comments: Atrial flutter rate of 148 bpm with 2-1 AV conduction Normal axis Diffuse ST depressions consistent with subendocardial injury Prior EKG tracings: not available for review Prior: No Prior Follow-up EKG: Attestation: I personally reviewed and interpreted this EKG as follows: Interpretation: Sinus Rhythm Comments: Normal sinus rhythm at a rate of 85 bpm Normal axis Normal intervals Normal Differential Diagnosis Chest pain/SOB: pulmonary embolism Reason(s) PE less likely: Positive for Well's <3, D-Dimer negative and not hypoxic, ACS ACS: Positive for history not suggestive of ischemia pain, pneumothorax Reason(s) pneumothorax less likely: Positive for bilateral breath sounds and [employer] withhout PTX and CHF Reason(s) CHF less likely: Positive for no significant peripheral edema, no orthopnea and no evidence of fluid overload on CXR Discharge Plan Triage Chief Complaint: Palpitations ED Provider: Tala Oliveira Dx/Rx/DC Orders Clinical Impression: Atrial flutter, paroxysmal Instructions: ED Atrial Flutter Prescriptions: No Action alprazolam 1 mg tablet 1 - 2 mg PO QHS PRN PRN (Reason: insomnia) allopurinol 100 mg tablet 100 mg PO DAILY escitalopram oxalate 20 mg tablet 20 mg PO QHS Primary Care Provider: Dylon Saab Referrals: Manolo Coreas MD [Med Staff - Active Staff] - Dylon Saab DO [Primary Care Provider] - Activity Restrictions/Additional Instructions: Please stop taking your diet supplement as it could be causing atrial flutter in conjunction with your daily caffeine intake. Follow-up with cardiology call the office on Monday to schedule follow-up appointment. Let them know you are seen in the ER for new onset of atrial flutter. Please follow up with your family doctor as well. Your blood sugar was mildly elevated in the ER today. Print Language: Maori Disposition Disposition: Home, Self Care
[2025-02-14 23:01] VITALS: BP 138/80; PULSE 75; RESP 16; TEMP 36.2; O2SAT 97
== END 2025-02-14 23:02 | disposition home or self-care (01) ==
PROVIDERS: Emergency Provider Emergency Medicine; PCP Family Medicine; Visit Provider Emergency Medicine
DX: R00.2 Palpitations (principal); I48.92 Unspecified atrial flutter
CPT/HCPCS: 71046; 80048; 83735; 84443; 85025; 85379; 93005; 99283; A4216

== ENCOUNTER → 2025-04-22 | Outpatient (CLI) | payer BC, SELFPAY | END | disposition home or self-care (01) | LOC: PSN 08:19 | PROVIDERS: PCP Family Medicine; Referring Provider Internal Medicine Cardiovascular Disease; Visit Provider Internal Medicine Cardiovascular Disease | DX: I48.0 Paroxysmal atrial fibrillation (principal) | CPT/HCPCS: 93225; 93226 ==

== ENCOUNTER 2025-05-26 06:58 | Observation (INO) | payer BC, SELFPAY ==
[2025-05-26] VITALS (12 sets, daily range): BP systolic 126–203; BP diastolic 72–94; PULSE 56–73; RESP 14–20; TEMP 36.7–36.8; O2SAT 98–100; BMI 30.1; BMI 29.7
--- NOTE | 2025-05-26 07:01 | CT_ITS ---
EXAM: NONCONTRAST CT SCAN OF THE HEAD CLINICAL HISTORY: Neuro deficit, acute stroke COMPARISON: None TECHNIQUE: Serial axial series through the head were obtained without contrast. 2-D coronal and sagittal reformats were then obtained. FINDINGS: Brain: There is no acute large territorial infarct, intracranial hemorrhage, midline shift or mass effect. The sella and pineal gland regions appear unremarkable. There is no evidence of cerebellar tonsillar herniation. Ventricles: There is no acute hydrocephalus. Basilar cisterns are patent. Paranasal sinuses: Well-aerated Mastoid air cells: Well-aerated. Calvarium: The bony calvarium is intact. Orbits: The bilateral globes are symmetric, without retrobulbar compressive mass lesion or hemorrhage. CT/STROKE Brain/Head without Cont IMPRESSION: No acute intracranial pathology. [facility]
--- NOTE | 2025-05-26 07:01 | CT_ITS ---
PROCEDURE: STROKE CTA HEAD AND NECK W/CON 05/26/2025 REASON FOR EXAM: NEURO DEFICIT, ACUTE, STROKE SUSPECTED TECHNIQUE: Procedure Code: [id number].ST.HN Modality: CT Procedure: STROKE CTA HEAD AND NECK W/CON Multiplanar Sagittal and Coronal images were obtained. CONTRAST: 95 cc Isovue 370 One or more dose reduction techniques were used (e.g., Automated exposure control, adjustment of the mA and/or kV according to patient size, use of iterative reconstruction technique). RADIATION DOSE SUMMARY: DLP: 796 mGycm COMPARISON: None FINDINGS: Aortic Arch: Patent Brachiocephalic and Subclavians: Patent RIGHT Carotid: Right CCA: Patent Right ICA: Patent Maximum stenosis (NASCET): 0 % Right ECA: Patent LEFT Carotid: Left CCA: Patent Left ICA: Calcified and soft plaque are noted at the ICA origin on the left with 25% diameter stenosis Maximum stenosis (NASCET): 25 % Left ECA: Patent Vertebrals: Patent RIGHT Vertebral: Patent LEFT Vertebral: Patent Anatomy: Patent Aneurysm or avm: None Anterior cerebral arteries: Patent Middle cerebral arteries: Patent Basilar artery: Patent Posterior cerebral arteries: Patent Other major branches of the posterior circulation: Patent Major venous structures: Patent Other findings: Neck: Unremarkable lungs: Clear bones: There is no acute bony abnormality CT/STROKE CTA Head AND Neck W/Con IMPRESSION: Calcified and soft plaque are noted at the ICA origin on the left with 25% diam eter stenosis Reading [facility]
--- OUTSIDE RECORDS SUMMARY | 2025-05-26 07:03 | XMS RPT_ITS | CCD ---
Author Organization [facility] Care Team Providers Care Noodle Catalyst Maker Name Role Phone Unavailable Primary Care Provider Unavailabl e Dr. Dylon Saab DO Primary Care Provider [phone] Dr. Tala Oliveira DO Emergency Provider Dr. Tala Oliveira DO Attending Provider Dr. Dylon Saab DO Referring Provider Dr. Edilberto Mireles MD Attending Provider Dr. Dylon Saab DO Primary Care Physician Dr. Tala Oliveira DO Attending Physician Dr. Tala Oliveira DO Emergency Department Physi mini Dr. Edilberto Mireles MD Attending Physician [phone] Dr. Edilberto Mireles MD Referring Provider Edilberto Mireles Attending Unavailable Edilberto Mireles Referring Unavailable Dylon Saab Primary Care Unavailable Dylon Saab Primary Care Unavailable Dylon Saab Attending Unavailable Dylon Saab Primary Care Unavailable Tala Oliveira Attending Unavailable Dylon Saab Referring Unavailable Edilberto Mireles Attending Unavailable Dylon Saab Primary Care Unavailable Medications Current Medications Medication Drug Class(es) Dates Sig (Normalized) Sig (Original) allopurinol 100 mg oral tablet (5 sources) Xanthine Oxidase Inhibitor Start: 02-14-2025 take 1 tablet by mouth once daily Start: 11-03-2022 take 1 tablet by tommy th once daily allopurinol (ZYLOPRIM) 100 mg tablet Take 100 mg by mouth once daily. 0 11/03/2022 Active Comment on above: Take 100 mg by mouth once daily. ALPRAZolam 1 mg oral tablet (3 sources) Benzodiazepine Start: 02-14-2025 take 1-2 mg by mouth at bedtime as needed aspirin 81 mg oral tablet (2 sources) Platelet Aggregation Inhibitor, Nonsteroidal Anti-inflammatory Drug Start: 04-02-2025 take 1 tablet by mouth once daily cholecalciferol 0.125 mg oral capsule (2 sources) Vitamin D Start: 04-02-2025 take 1 capsule by mouth once daily escitalopram 20 mg oral tablet (5 sources) Serotonin Reuptake Inhibitor Start: 02-14-2025 take 1 tablet by mouth at bedtime Start: 12-02-2022 [facility] daily at bed[facility] escitalopram oxalate (LEXAPRO) 20 mg tablet Take 20 mg by mouth daily at bedtime. 0 12/02/2022 Active Comment on above: Take 20 mg by mouth daily at bedtime. Multivitamin tablet (2 sources) Start: 04-02-2025 Start: 04-02-2025 Multivitamin t ablet Active 1 {tbl} PO daily April 02, 2025 12:00am Nervive (2 sources) Start: 04-02-2025 Start: 04-02-2025 Nervive Active PO DAILY April 02, 2025 12:00am nitrofurantoin, macrocrystals 25 mg / nitrofurantoin, monohydrate 75 mg oral capsule (2 sources) Nitrofuran Antibacterial Start: 12-25-2022 End: 12-30-2022 take 1 capsule by mouth twice daily nitrofurantoin monohydrate and macrocrystal (MACROBID) 100 mg capsule Take 1 capsule by mouth twice daily for 5 days. 10 capsule 0 12/25/2022 12/30/2022 Active Comment on above: Take 1 capsule by [facility] twice daily for 5 days. Prevagen (2 sources) Start: 04-02-2025 Start: 04-02-2025 Prevagen Activ e PO DAILY April 02, 2025 12:00am rosuvastatin calcium 10 mg oral tablet (2 sources) HMG-CoA Reductase Inhibitor Start: 04-02-2025 take 1 tablet by mouth once daily Completed/Discontinued Medications Medication Drug Class(es) Dates Sig (Normalized) Sig (Original) terbinafine 250 mg oral tablet (2 sources) Allylamine Antifungal Start: 12-13-2022 take 1 tablet by mouth once daily terbinafine HCl (LAMISIL) 250 mg tablet Take 250 mg by mouth once daily. 0 12/13/2022 Active Comment on above: Take 250 mg by mouth once daily. Problems Problem Classification Problem Date Documented Da te Episodic/Chronic Cardiac dysrhythmias (8 sources) Paroxysmal atrial flutter; Translations: [Unspecified atrial flutter] Onset: 04-02-2025 02-14-2025 Chronic Cardiac dysrhythmias (4 sources) Palpitations; Translations: [Palpitations] Onset: 02-18-2025 03-21-2025 Episodic Diabetes mellitus without complication (2 sources) Prediabetes; Translations: [Prediabetes] 03-21-2025 Episodic Disorders of lipid metabolism (5 sources) Hyperlipidemia; Translations: [Hyperlipidemia, unspecified] Onset: 04-02-2025 03-21-2025 Chronic Fever of unknown origin (1 source) Fever; Translations: [Fever, unspecified] Episodic Gout and other crystal arthropathies (3 sources) Gout; Translations: [Gout, unspecified] Onset: 09-09-2024 03-21-2025 Chronic Results Test Name Value Interpretation Reference Range Facility Cardiology Visit Reporton Cardiology Visit Report [facility] [address] [place] [address] OFFICE VISIT Date of Service: 04/02/25 MR#: [id number] Acct: [id number] Name: ROSALINE BARRAZA Rep #: [id number] : 1960 Provider: Dr. Edilberto stokes MD Age/Sex: 64/F Location: [facility] [place] Status: Signed with Addenda ADDENDUM by Dr. Edilberto Mireles MD on 04/02/25 at 1037 Addendum Addendum Details:: ECG done in office today shows sinus bradycardia at 52 bpm cannot rule out septal infarct based on the ECG. Assessment and Plan Assessment and Plan (1) Hyperlipidemia: Status: Acute Qualifiers: Hyperlipidemia type: pure hypercholesterolemia Qualified Code(s): E78.00 - Pure hypercholesterolemia, unspecified (2) Atrial flutter: Status: Acute Qualifiers: Atrial flutter type: typical Qualified Code(s): I48.3 - Typical atrial flutter (3) Palpitations: Status: Acute Orders: Orders 12 Lead EKG performed by BMS Today I48.92 - Unspecified atrial flutter Lipid Profile 6 Weeks E78.5 - Hyperlipidemia, unspecified Liver Profile 6 Months E78.5 - Hyperlipidemia, unspecified Cardiac Holter Monitor, 24 Hrs Today I48.0 - Paroxysmal atrial fibrillation Medications: New aspirin 81 mg PO QDAY 60 tabs 0RF rosuvastatin 10 mg PO QDAY 30 tabs 3RF Plan Details Follow Up: 6 Months (With KRISTINE and as needed) 04/02/25 1037 Date Edilberto Mireles MD cc: Dr. Dylon Saab, DO * Signed HPI HPI History of Present Illness Details: Patient is a very pleasant 64-year-old white female that comes in today for new patient visit. The patient carries a history of palpitations for 18 to 20 years. These usually are very short- lived and spontaneously stopped prior to her a few seconds. However in January and February 14, 2025 the patient developed the palpitations her heart rate was documented 115 by her smart watch and she went to the ED where ECG was documented atrial flutter with 2-1 conduction at a heart rate of 148 bpm. While there the patient spontaneously converted to sinus rhythm. The patient been taking a dietary supplement to increase her energy that had significant caffeine in it. Since stopping that her palpitations have essentially resolved. She denies any dizziness lightheadedness denies any chest symptoms denies any PND orthopnea denies any lower extremity edema. The patient does have a history of prediabetes and hyperlipidemia. [id number] or calculates at 1 for female gender. She is not on oral anticoagulation therapy. The patient does have a significant family history of coronary artery disease she is hyperlipidemic last lipids I have showed an LDL of 172 from January 2022. She is not hypertensive in her home environment multiple blood pressures measured by her smart watch were under 135/85. Blood pressure in the office today was 153/79 with a heart rate of 50. Her heart rate normally runs in the 50 to 60 bpm range. When she gets up around to 100 bpm is when she feels the palpitations. The patient reports that she intermittently has these palpitations several times a day but they are very short-lived. The patient is not routinely active and in fact she reports significant fatigue and lack of energy. Intake Vital Signs 02/14/25 19:57 04/02/25 09:47 Height 5 ft 4 in 5 ft 4 in Weight: 175 lb BMI 30.0 BP 153/79 H Blood Pressure Location Lt brachial Position Sitting Respiration 18 Pulse 51 L Pulse Source Monitor Pulse Oximetry (%) 98 Oxygen Delivery Method room air Intake Visit Reasons: AFIB ([facility]) Capping Machine Operator Required: No Accompanied by: Self Is patient in pain?: No Allergies No Known Allergies Allergy (Verified 04/02/25 09:47) Medications ???Medication ???Instructions ???Recorded ???Confirmed ???Type allopurinol 100 mg tablet 100 mg PO DAILY 02/14/25 04/02/25 History alprazolam 1 mg tablet 1 - 2 mg PO QHS PRN PRN insomnia 0 02/14/25 04/02/25 History escitalopram oxalate 20 mg tablet 20 mg PO QHS 02/14/25 04/02/25 Hi story Nervive PO DAILY 04/02/25 04/02/25 History Prevagen PO DAILY 04/02/25 04/02/25 History aspirin 81 mg tablet 81 mg PO QDAY #60 tabs 04/02/25 Rx cholecalciferol (vitamin D3) 125 125 mcg PO QDAY 04/02/25 04/02/25 History mcg (5,000 unit) capsule multivitamin 1 tab PO QDAY 04/02/25 04/02/25 Hi story rosuvastatin 10 mg tablet 10 mg PO QDAY #30 tabs 04/02/25 Rx Have you fallen in the past year?: No [facility] History Prediabetes Gout Hyperlipidemia Palpitations Atrial flutter Surgical History History of dilatation and curettage Family History (Revi (more content not included)... Normal [facility] Absolute lymphocyte countOrd ered By: Tala Oliveira on 02-14-2025 Lymphocytes Auto (Unsp spec) [#/Vol] 3.58 10*3/uL 0.83-4.51 [facility] Absolute neutrophil countOrd ered By: Tala Oliveira on 02-14-2025 Neutrophils (Bld) [#/Vol] 6.0 10*3/uL 2.0-7.7 [facility] Anion gap in Serum or Plasma Ordered By: Tala Oliveira on 02-14-2025 Anion gap [Moles/Vol] 17 mmol/L High 5-15 [facility] Automated lymphocyte count a s percentage of total leukocytesOrdered By: Tala Oliveira on 02-14-2025 Lymphocytes/100 WBC Auto (Unsp spec) 34.2 % 19-41 [facility] BUN/creatinine ratioOrdered By: Tlaa Oliveira on 02-14-2025 Urea nitrogen/Creatinine [Mass ratio] 9.9 mg/mg Low 10-20 [facility] Basic Metabolic Profile (BMP )on 02-14-2025 BUN/CRE 9.9 RATIO Low - [facility] Comment on above: Performed By: #### L 501.9520, L501.5200, L100.0100, L300.8000, L500.2500 #### [facility] [address] [place], [address] Calcium [Mass/Vol] 10.6 mg/dL Normal 7.6-11.0 [facility] Comment on above: Performed By: #### L 501.9520, L501.5200, L100.0100, L300.8000, L500.2500 #### [facility] [address] [place], [address] Chloride [Moles/Vol] 98 mmol/L Normal 98-108 [facility] Comment on above: Performed By: #### L 501.9520, L501.5200, L100.0100, L300.8000, L500.2500 #### [facility] [address] [place], [address] CO2 [Moles/Vol] 24.7 mmol/L Normal 21.0-32.0 [facility] Comment on above: Performed By: #### L 501.9520, L501.5200, L100.0100, L300.8000, L500.2500 #### [facility] [address] [place], [address] Creatinine [Mass/Vol] 0.95 mg/dL Normal 0.70-1.20 [facility] Comment on above: Performed By: #### L 501.9520, L501.5200, L100.0100, L300.8000, L500.2500 #### [facility] [address] [place], [address] ECRCL 62.94 ml/min Normal 50-250 [facility] Comment on above: Performed By: #### L 501.9520, L501.5200, L100.0100, L300.8000, L500.2500 #### [facility] [address] [place], [address] GAP 17 High 5-15 [facility] Comment on above: Performed By: #### L 501.9520, L501.5200, L100.0100, L300.8000, L500.2500 #### [facility] [address] [place], [address] GFR/1.73 sq M.predicted among non-blacks MDRD (S/P/Bld) [Vol rate/Area] 67 mL/min/{1.73_m2} Normal >60 [facility] Comment on above: Result Comment: mL/m in/1.73m2 CKD-EPI Creatinine Equation (2020) Performed By: #### L 501.9520, L501.5200, L100.0100, L300.8000, L500.2500 #### [facility] [address] [place], [address] Glucose [Mass/Vol] 172 mg/dL High 70-99 [facility] Comment on above: Performed By: #### L 501.9520, L501.5200, L100.0100, L300.8000, L500.2500 #### [facility] [address] [place], [address] Potassium [Moles/Vol] 4.1 mmol/L Normal 3.3-5.1 [facility] Comment on above: Performed By: #### L 501.9520, L501.5200, L100.0100, L300.8000, L500.2500 #### [facility] [address] [place], [address] Sodium [Moles/Vol] 140 mmol/L Normal 133-145 [facility] Comment on above: Performed By: #### L 501.9520, L501.5200, L100.0100, L300.8000, L500.2500 #### [facility] [address] [place], [address] Urea nitrogen [Mass/Vol] 9 mg/dL Normal 4-19 [facility] Comment on above: Performed By: #### L 501.9520, L501.5200, L100.0100, L300.8000, L500.2500 #### [facility] [address] [place], [address] Basophil percentageOrdered B y: Tala Oliveira on 02-14-2025 Basophils/100 WBC (Bld) 0.8 % 0-1 [facility] CBC W/Diff, Automatedon 01-28 Absolute Lymph 3.58 X10 3/uL Normal 0.83-4.51 [facility] Comment on above: Performed By: #### L 501.9520, L501.5200, L100.0100, L300.8000, L500.2500 #### [facility] [address] [place], [address] Absolute Neut 6.0 X10 3/uL Normal 2.0-7.7 [facility] Comment on above: Performed By: #### L 501.9520, L501.5200, L100.0100, L300.8000, L500.2500 #### [facility] [address] [place], [address] Basophils/100 WBC (Bld) 0.8 % Normal 0-1 [facility] Comment on above: Performed By: #### L 501.9520, L501.5200, L100.0100, L300.8000, L500.2500 #### [facility] [address] [place], [address] Eosinophils/100 WBC (Bld) 1.8 % Normal 0-5 [facility] Comment on above: Performed By: #### L 501.9520, L501.5200, L100.0100, L300.8000, L500.2500 #### [facility] [address] [place], [address] Erythrocyte distribution width (RBC) [Ratio] 12.0 % Normal 11.6-14.6 [facility] Comment on above: Performed By: #### L 501.9520, L501.5200, L100.0100, L300.8000, L500.2500 #### [facility] [address] [place], [address] Hematocrit (Bld) [Volume fraction] 45.4 % Normal 37-47 [facility] Comment on above: Performed By: #### L 501.9520, L501.5200, L100.0100, L300.8000, L500.2500 #### [facility] [address] [place], [address] Hemoglobin (Bld) [Mass/Vol] 15.4 g/dL High 12.0-15.0 [facility] Comment on above: Performed By: #### L 501.9520, L501.5200, L100.0100, L300.8000, L500.2500 #### [facility] [address] [place], [address] IG% 0.300 Normal 0.0-0.9 [facility] Comment on above: Result Comment: IG% - Immature Granulocytes (promyelocytes, myelocytes and metamyelocytes) > 1% indicates that a LEFT SHIFT is Present. Performed By: #### L 501.9520, L501.5200, L100.0100, L300.8000, L500.2500 #### [facility] [address] [place], [address] Lymphocytes/100 WBC (Bld) 34.2 % Normal 19-41 [facility] Comment on above: Performed By: #### L 501.9520, L501.5200, L100.0100, L300.8000, L500.2500 #### [facility] [address] [place], [address] MCH (RBC) [Entitic mass] 30.3 pg Normal 27.0-32.0 [facility] Comment on above: Performed By: #### L 501.9520, L501.5200, L100.0100, L300.8000, L500.2500 #### [facility] [address] [place], [address] MCHC (RBC) [Mass/Vol] 33.9 g/dL Normal 32-36 [facility] Comment on above: Performed By: #### L 501.9520, L501.5200, L100.0100, L300.8000, L500.2500 #### [facility] [address] [place], [address] MCV (RBC) [Entitic vol] 89.4 fL Normal 81-99 [facility] Comment on above: Performed By: #### L 501.9520, L501.5200, L100.0100, L300.8000, L500.2500 #### [facility] [address] [place], [address] Monocytes/100 WBC (Bld) 5.5 % Normal 0-10 [facility] Comment on above: Performed By: #### L 501.9520, L501.5200, L100.0100, L300.8000, L500.2500 #### [facility] [address] [place], [address] Neutrophils/100 WBC (Bld) 57.4 % Normal 47-70 [facility] Comment on above: Performed By: #### L 501.9520, L501.5200, L100.0100, L300.8000, L500.2500 #### [facility] [address] [place], [address] Nucleated RBC (Bld) [#/Vol] 0 10*3/uL Normal 0-5 [facility] Comment on above: Performed By: #### L 501.9520, L501.5200, L100.0100, L300.8000, L500.2500 #### [facility] [address] [place], [address] Platelet mean volume (Bld) [Entitic vol] 10.4 fL Normal 6.2-12.0 [facility] Comment on above: Performed By: #### L 501.9520, L501.5200, L100.0100, L300.8000, L500.2500 #### [facility] [address] [place], [address] Platelets (Bld) [#/Vol] 316 10*3/uL Normal 150-450 [facility] Comment on above: Performed By: #### L 501.9520, L501.5200, L100.0100, L300.8000, L500.2500 #### [facility] [address] [place], [address] RBC (Bld) [#/Vol] 5.08 10*6/uL Normal 4.2-5.4 [facility] Comment on above: Performed By: #### L 501.9520, L501.5200, L100.0100, L300.8000, L500.2500 #### [facility] [address] [place], [address] RDW SD 39.3 fl Normal 35.1-43.9 [facility] Comment on above: Performed By: #### L 501.9520, L501.5200, L100.0100, L300.8000, L500.2500 #### [facility] [address] [place], [address] WBC (Bld) [#/Vol] 10.5 10*3/uL Normal 4.4-11.0 [facility] Comment on above: Performed By: #### L 501.9520, L501.5200, L100.0100, L300.8000, L500.2500 #### [facility] [address] [place], [address] Carbon dioxide, total [Moles /volume] in Central venous bloodOrdered By: Tala Oliveira on 02-14-2025 CO2 [Moles/Vol] 24.7 mmol/L 21.0-32.0 [facility] Chest PA and Lateralon 02-14 Chest PA and Lateral [facility] [address] [place] [address] Chest PA and Lateral MR#: [id number] Acct: [id number] Name: ROSALINE BARRAZA Rep #: [id number] : 1960 F 64 From: Rodríguez Dodge MD PCP: Dr. Dylon Saab, Status: [facility] ER Study: Chest PA and Lateral Date of Exam: 02/14/25 Exam# [id number] Ordering Dr: Tala Oliveira DO PROCEDURE: CHEST PA AND LATERAL 02/14/2025 REASON FOR EXAM: SOB TECHNIQUE: CHEST PA AND LATERAL COMPARISON: None. FINDINGS: Lungs/Pleura: Clear. Heart/Mediastinum: Normal in size. Bones/Soft tissues: Mild degenerative changes of the thoracic spine. RAD/Chest PA and Lateral IMPRESSION: No acute cardiopulmonary disease. Reading Location: [id number] CC: Dr. Tala Oliveira DO; Dr. Dylon Saab DO Clinical Fellow: Signed Normal [facility] Chloride assayOrdered By: Honorio Oliveira on 02-14-2025 Chloride [Moles/Vol] 98 mmol/L 98-108 [facility] D-Dimer Quantitative (DVT/PE )on 02-14-2025 D-DIMER QUANT 0.30 FEU/ug/m Normal 0.27-0.49 [facility] Comment on above: Result Comment: NORM AL D-Dimer level (<0.50) indicates no DVT or PE. Performed By: #### L 501.9520, L501.5200, L100.0100, L300.8000, L500.2500 #### [facility] [address] [place], [address] Emergency Department Summary on 02-14-2025 Emergency Department Summary [facility] Medical Records Department [address] [place] [address] Emergency Department Summary 02/14/25 MR#: [id number] Acct: [id number] Name: ROSALINE BARRAZA Rep #: [id number] : 1960 64 From: Tala Oliveira DO PCP: Dr. Dylon Saab DO Status:REG ER Location: ED HPI History of Present Illness Chief Complaint: Palpitations Informant: patient Narrative Narrative: Patient is a 64-year-old female denies any significant past medical history but does report a long send history of intermittent palpitations. She states [address] Coreas and also a Holter monitor. States her PCP at that time thought maybe she was having SVT. Ultimately it was felt that there is nothing going on and she was told she did not need to follow-up. She states she continues to have secondary to of palpitations every few days for this whole time. She states most the time before she can even say anything the sensation is already gone away. Today however she had palpitations lasted for an hour. She states she felt mildly short of breath or winded with it. Denies any associated chest pain. Denies any swelling of her legs. Is not on any blood thinners. Is never been diagnosed with atrial flutter or any type of arrhythmia formally. Denies feeling lightheaded. Came in for further evaluation. States that she does drink 1 or 2 iced coffees a day. Also notes for the past month she has been taking a diet supplements which is Burn Evolved. PFSH PFSH Home Medications ???Medication ???Instructions ???Recorded ???Last Taken ???Type allopurinol 100 mg tablet 100 mg PO DAILY 02/14/25 Unknown H istory alprazolam 1 mg tablet 1 - 2 mg PO QHS PRN PRN insomnia 0 02/14/25 Unknown History escitalopram oxalate 20 mg tablet 20 mg PO QHS 02/14/25 Unknown His tory Allergy/AdvReac Type Severity Reaction Status Date / Time No Known Allergies Allergy Verified 02/14/25 19:57 Social History Smoking Status: Never smoker ROS ROS ED Constitutional Constitutional ED: Denies chills, fever(s) or sweats ENT ENT ED: Denies sore throat Cardiovascular Cardiovascular: Reports palpitations and racing heartbeat; Denies chest pain Respiratory/Chest Respiratory/Chest: Reports cough; Denies dyspnea Gastrointestinal Gastrointestinal: Denies nausea or vomiting Musculoskeletal Musculoskeletal: Denies arthralgias or myalgias Hematologic/Lymphatic Hematologic/Lymphatic: Denies easy bleeding or easy bruising EXAM Physical Exam Const Vital Signs: 02/14/25 19:57 02/14/25 21:00 02/14/25 22:00 Temperature 98.3 F Temperature Source Oral Pulse Rate 155 H 94 85 Respiratory Rate 18 15 Blood Pressure 166/135 H 141/75 H 144/81 H Blood Pressure Mean 145 97 102 Pulse Ox 99 100 99 Oxygen Delivery Method Room Air Room Air Positive well nourished and well developed General Appearance ED: well developed and NAD HEENT Reports moist mucous membranes Neck supple and no JVD Chest Wall inspection of chest normal and palpation of chest normal Resp normal respiratory effort and clear to auscultation bilaterally Auscultation: Negative for rales, rhonchi or wheezes Cardio regular rate, regular rhythm and no murmurs GI normal to inspection, nondistended, normoactive bowel sounds, non-tender and non-distended Neuro oriented x3 Sensorium / Orientation: alert Motor Exam: Negative for general weakness Psych mental status grossly normal Skin no rashes or lesions noted MDM MDM MDM Narrative Medical decision making narrative: Patient evaluated for palpitations. Initial EKG obtained upon arrival shows atrial flutter with 2 1 conduction at a rate of 148 beats per minutes. She is converted back to normal sinus rhythm and has no complaints. States she is feeling much better. There is also diffuse ST abnormalities likely some endocardial injury. By the time I evaluated she has been having this palpitations for years but is never actually been captured. Workup for undergoing cause of atrial flutter is obtained including CBC considering symptomatic anemia, BMP looking for electrolyte abnormality and TSH. Chest x-ray reviewed by myself as well as radiology does not show any acute process. Workup largely normal. She has a mildly elevated anion gap but she has a normal bicarb and normal electrolytes. She states has been drinking well. Her glucose is mildly elevated at 172. Do not think this is enough to cause DKA. She is overall well-appearing with normal vital signs. Lab work otherwise remarkable only for minimally elevated magnesium of 2.3. Patient's CQE0IT3-KDJt 2 score is 1. As a female she is low risk for stroke. Discussed that her yearly risk of stroke is 0.6%. Patient is comfortable holding off on antico (more content not included)... Normal [facility] Eosinophil percentageOrdered By: Tala Oliveira on 02-14-2025 Eosinophils/100 WBC (Bld) 1.8 % 0-5 [facility] Erythrocyte distribution wid th ratioOrdered By: Tala Oliveira on 02-14-2025 Erythrocyte distribution width (RBC) [Ratio] 12.0 % 11.6-14.6 [facility] Erythrocyte distribution wid th standard deviationOrdered By: Tala Oliveira on 02-14-2025 Erythrocyte distribution width (RBC) [Ratio] 39.3 fl 35.1-43.9 [facility] Glomerular filtration rate ( GFR) estimation/1.73 sq m using serum, plasma, or whole bOrdered By: Tala Oliveira on 02-14-2025 GFR/1.73 sq M.predicted among non-blacks MDRD (S/P/Bld) [Vol rate/Area] 67 mL/min/{1.73_m2} >60 [facility] Comment on above: mL/min/1.73m2 CKD-EP I Creatinine Equation (2020) Hematocrit Auto (Bld) [Volum e fraction]Ordered By: Tala Oliveira on 02-14-2025 Hematocrit (Bld) [Volume fraction] 45.4 % 37-47 [facility] Hemoglobin measurementOrdere d By: Tala Oliveira on 02-14-2025 Hemoglobin (Bld) [Mass/Vol] 15.4 g/dL High 12.0-15.0 [facility] Immature granulocytes/100 WB C Auto (Bld)Ordered By: Tala Oliveira on 02-14-2025 Immature granulocytes/100 WBC (Bld) 0.300 % 0.0-0.9 [facility] Comment on above: IG% - Immature Granu locytes (promyelocytes, myelocytes and metamyelocytes) > 1% indicates that a LEFT SHIFT is Present. MCV (mean corpuscular volume ) determinationOrdered By: Tala Oliveira on 02-14-2025 MCV (RBC) [Entitic vol] 89.4 fL 81-99 [facility] Magnesiumon 02-14-2025 Magnesium [Mass/Vol] 2.3 mg/dL High 1.5-2.2 [facility] Comment on above: Performed By: #### L 501.9520, L501.5200, L100.0100, L300.8000, L500.2500 #### [facility] [address] [place] [address]. [place], [place], [id number] Magnesium measurement (mass/ volume)Ordered By: Tala Oliveira on 02-14-2025 Magnesium (Unsp spec) [Mass/Vol] 2.3 mg/dL High 1.5-2.2 [facility] Mean corpuscular hemoglobin (MCH) determinationOrdered By: Tala Oliveira on 02-14-2025 MCH (RBC) [Entitic mass] 30.3 pg 27.0-32.0 [facility] Mean corpuscular hemoglobin concentration (MCHC) determinationOrdered By: Tala Oliveira on 02-14-2025 MCHC (RBC) [Mass/Vol] 33.9 g/dL 32-36 [facility] Mean platelet volume determi nationOrdered By: Tala Oliveira on 02-14-2025 Platelet mean volume (Bld) [Entitic vol] 10.4 fL 6.2-12.0 [facility] Monocyte percentageOrdered B y: Tala Oliveira on 02-14-2025 Monocytes/100 WBC (Bld) 5.5 % 0-10 [facility] Neutrophil percentageOrdered By: Tala Oliveira on 02-14-2025 Neutrophils/100 WBC (Bld) 57.4 % 47-70 [facility] Nucleated red blood cell per centageOrdered By: Tala Oliveira on 02-14-2025 Nucleated RBC/100 WBC (Bld) [Ratio] 0 % 0-5 [facility] Platelet countOrdered By: Honorio Oliveira on 02-14-2025 Platelets (Bld) [#/Vol] 316 10*3/uL 150-450 [facility] Potassium measurement (mass/ volume)Ordered By: Tala Oliveira on 02-14-2025 Potassium (Unsp spec) [Mass/Vol] 4.1 mmol/L 3.3-5.1 [facility] RBC Auto (Bld) [#/Vol]Ordere d By: Tala Oliveira on 02-14-2025 RBC (Bld) [#/Vol] 5.08 10*6/uL 4.2-5.4 [facility] Serum creatinine measurement (mass/volume)Ordered By: Tala Oliveira on 02-14-2025 Creatinine [Mass/Vol] 0.95 mg/dL 0.70-1.20 [facility] Serum glucose measurement (m ass/volume)Ordered By: Tala Oliveira on 02-14-2025 Glucose [Mass/Vol] 172 mg/dL High 70-99 [facility] Serum or plasma calcium mary alice urement (mass/volume)Ordered By: Tala Oliveira on 02-14-2025 Calcium [Mass/Vol] 10.6 mg/dL 7.6-11.0 [facility] Serum or plasma urea nitroge n measurement (mass/volume)Ordered By: Tala Oliveira on 02-14-2025 Urea nitrogen [Mass/Vol] 9 mg/dL 4-19 [facility] Sodium levelOrdered By: Laura dimple Tee on 02-14-2025 Sodium [Moles/Vol] 140 mmol/L 133-145 [facility] TSH DL <= 0.005 mIU/L QnOrde red By: Tala Oliveira on 02-14-2025 TSH Qn 3.760 uIU/mL 0.300-4.200 [facility] Thyroid Stim Hormone (TSH)on 02-14-2025 TSH 3.760 uIU/mL Normal 0.300-4.200 [facility] Comment on above: Performed By: #### L 501.9520, L501.5200, L100.0100, L300.8000, L500.2500 #### [facility] [address] [place] [place], [address] White blood cell (WBC) count Ordered By: Tala Oliveira on 02-14-2025 WBC (Bld) [#/Vol] 10.5 10*3/uL 4.4-11.0 [facility] Uric Acidon 08-15-2024 URIC 4.7 mg/dL Normal 2.6-6.0 [facility] Comment on above: Result Comment: The drugs N-Acetylcysteine and Metamizole may falsely depress this assay. Performed By: #### L 501.1400 #### [facility] [address] [place], [address] CNPGiovanna 12-26-2022 CNPN Telephone (UCWSTR) ROSALINE BARRAZA ([id number]) 1960 F Date Time Provider Department 12/26/22 MARTIN SPARKS UCWS During your visit today, we recorded the following information about you: DENITA Zamora 12/26/2022 2:03 PM Signed Please let patient know urine culture came back negative for bacterial growth. She may stop antibiotic. Please follow-up with PCP for continued fevers. Herminio Anderson 12/26/2022 2:14 PM Signed Patient given results and verbalized understanding of instructions given. Herminio Anderson Allergies As of Date: 12/26/2022 (Not on File) Date Reviewed: 12/25/2022 Reviewed by: Herminio Anderson - Fully Assessed Reason for Visit: Results [...] Date: 12/26/2022 (None) Encounter Status:Closed by HERMINIO ANDERSON on 12/26/22 Normal [facility] Bacteria Ur Culton 3 Bacteria identified Cx Nom (U) ORGANISM ID: 1 10,000 -<50,000 CFU/ml Normal urogenital weston Normal [facility] Comment on above: Performed By: #### 6 30-4 #### [facility] CLIA [id number] [address] [place] [address] [place] CNOVon 12-25-2022 CNOV Office Visit (UCWSTR ) ROSALINE BARRAZA ([id number]) 1960 F Date Time Provider Department 12/25/22 1:15 PM MARTIN SPARKS UCWSTR During your visit today, we recorded the following information about you: Temperature Pulse Respiration Blood pressure 98.5 degrees 104/minute 16/minute 124/80 Weight 74.8 kg DENITA Zamora 12/25/2022 1:40 PM Signed This note was created using RadioFrame. Subjective Rosaline Barraza is a 62 year old female. HPI [...] File) Date Reviewed: 12/25/2022 Reviewed by: Herminio Anderson - Fully Assessed Reason for Visit: Fever [47] Cmt: x 4 days, started terbinafine on Monday, symptoms started but no fever Primary Visit Diagnosis:Fever, unspecified fever cause [R50.9] Order(s):UA DIP, URINE (POC) [2450467] Order #: [id number]. #:[id number] URINE CULTURE [SQURCUL] Order #: [id number] FUTURE nitrofurantoin monohydrate and macrocrystal (MACROBID) 100 mg capsuleTake 1 capsule by mouth twice daily for 5 days.Disp: 10 capsuleRfl: 0 URINE CULTURE [SQURCUL] Order #: [id number]. #:[id number] Prescriptions as of 12/25/2022 - allopurinol (ZYLOPRIM) 100 mg tablet Take 100 mg by mouth once daily. - escitalopram oxalate (LEXAPRO) 20 mg tablet Take 20 mg by mouth daily at bedtime. - terbinafine HCl (LAMISIL) 250 mg tablet Take (more content not included)... Normal [facility] UA DIP, URINE (POC)on 2022 BILIRUBIN UA (POCT) Negative Negative [facility] CLARITY UA (POCT) Clear [facility] COLOR UA (POCT) Yellow [facility] GLUCOSE UA (POCT) Negative Negative mg/dL [facility] HEMOGLOBIN/BLOOD UA (POCT) Small Abnormal Negative [facility] KETONE UA (POCT) Negative Negative mg/dL [facility] LEUKOCYTES UA (POCT) Trace Abnormal Negative [facility] NITRITE UA (POCT) Negative Negative [facility] PH UA (POCT) 5.5 4.5 - 8.0 [facility] Protein Ql (U) Negative Negative mg/dL [facility] SPECIFIC GRAVITY UA (POCT) <=1.005 Abnormal 1.005 - 1.030 [facility] UROBILINOGEN UA (POCT) 0.2 E.U./dL Donna l E.U./dL [facility] Absolute lymphocyte counton 02-04-2022 Lymphocytes Auto (Unsp spec) [#/Vol] 2.00 10*3/uL 0.83-4.51 [facility] Work Phone: Basophil percentageon 2021 Basophils/100 WBC (Bld) 0.8 % 0-1 [facility] Work Phone: Bilirubin [Mass/Vol] 0.30 mg/dL 0.20-1.00 [facility] Work Phone: Comment on above: For patients on eltr ombopag therapy, use of Dimension [place] TBIL is not recommended. Chloride [Moles/Vol] 104 mmol/L 98-107 [facility] Work Phone: Cholesterol [Mass/Vol] 247 mg/dL <200 [facility] Work Phone: [phone] Comment on above: <200 mg/dL Desirable 200-240 mg/dL Borderline >240 mg/dL High Risk Eosinophils/100 WBC (Bld) 1.8 % 0-5 [facility] Work Phone: Glucose [Mass/Vol] 104 mg/dL 74-106 [facility] Work Phone: [phone] Comment on above: Fasting Glucose resu lt from 100 to 125 mg/dL suggests IMPAIRED HOMEOSTASIS per A.D.A. criteria. Neutrophils (Bld) [#/Vol] 3.3 10*3/uL 2.0-7.7 [facility] Work Phone: [phone] Neutrophils/100 WBC (Bld) 56.0 % 47-70 [facility] Work Phone: [phone] Potassium [Moles/Vol] 4.0 mmol/L 3.5-5.1 [facility] Work Phone: [phone] Protein [Mass/Vol] 8.2 g/dL 6.4-8.2 [facility] Work Phone: [phone] Sodium [Moles/Vol] 140 mmol/L 136-145 [facility] Work Phone: [phone] Triglyceride [Mass/Vol] 119 mg/dL <199 [facility] Work Phone: [phone] Comment on above: The drugs N-Acetylcy steine and Metamizole may falsely depress this assay.Serum Triglycerides Reference Interval Normal <150 mg/dL Borderline high 150 - 199 mg/dL High 200 - 499 mg/dL Very High > or = 500 mg/dL WBC (Bld) [#/Vol] 6.0 10*3/uL 4.4-11.0 [facility] Work Phone: Blood erythrocytes count (nu mber/volume)on 02-04-2022 RBC (Bld) [#/Vol] 4.80 10*6/uL 4.2-5.4 [facility] Work Phone: [phone] Blood hemoglobin measurement (mass/volume)on 02-04-2022 Hemoglobin (Bld) [Mass/Vol] 14.3 g/dL 12.0-15.0 [facility] Work Phone: [phone] Blood lymphocytes/100 leukoc yteson 02-04-2022 Lymphocytes/100 WBC (Bld) 33.4 % 19-41 [facility] Work Phone: [phone] Blood monocytes/100 leukocyt eson 02-04-2022 Monocytes/100 WBC (Bld) 7.7 % 0-10 [facility] Work Phone: [phone] Blood platelet mean volumeon 02-04-2022 Platelet mean volume (Bld) [Entitic vol] 10.6 fL 6.2-12.0 [facility] Work Phone: [phone] Determination of erythrocyte mean corpuscular volume (MCV)on 02-04-2022 MCV (RBC) [Entitic vol] 91.5 fL 81-99 [facility] Work Phone: [phone] Hematocrit Auto (Bld) [Volum e fraction]on 02-04-2022 Hematocrit (Bld) [Volume fraction] 43.9 % 37-47 [facility] Work Phone: Laboratory - Chemistry and C hemistry - challengeon 02-04-2022 ALP [Catalytic activity/Vol] 67 U/L 45-117 [facility] Work Phone: [phone] ALT [Catalytic activity/Vol] 35 U/L 13-56 [facility] Work Phone: [phone] CO2 [Moles/Vol] 31.0 mmol/L 21.0-32.0 [facility] Work Phone: Globulin (S) [Mass/Vol] 4.0 g/dL 2.2-4.2 [facility] Work Phone: [phone] Urea nitrogen/Creatinine [Mass ratio] 21.2 mg/mg 10-20 [facility] Work Phone: [phone] Laboratory - Hematology and Cell countson 02-04-2022 Erythrocyte distribution width (RBC) [Entitic vol] 39.5 fL 35.1-43.9 [facility] Work Phone: [phone] Erythrocyte distribution width (RBC) [Ratio] 11.9 % 11.6-14.6 [facility] Work Phone: [phone] Immature granulocytes/100 WBC (Bld) 0.300 % 0.0-0.9 [facility] Work Phone: [phone] Comment on above: IG% - Immature Granu locytes (promyelocytes, myelocytes and metamyelocytes) > 1% indicates that a LEFT SHIFT is Present. MCH (RBC) [Entitic mass] 29.8 pg 27.0-32.0 [facility] Work Phone: [phone] Nucleated RBC/100 WBC (Bld) [Ratio] 0 % 0-5 [facility] Work Phone: [phone] MCHC Auto (RBC) [Mass/Vol]on 02-04-2022 MCHC (RBC) [Mass/Vol] 32.6 g/dL 32-36 [facility] Work Phone: No Panel Informationon 02-04 Estimated GFR (MDRD) Amer 94 mL/min >60 [facility] Work Phone: [phone] Comment on above: GFR Calc Estimated GFR (MDRD) Non-Af Amer 78 mL/min >60 [facility] Work Phone: [phone] Comment on above: Non- GFR Calc Thyroid Stimulating Hormone (TSH) 1.91 uIU/mL 0.358-3.74 [facility] Work Phone: [phone] Vitamin D 25-Hydroxy 43.4 ng/mL [facility] Work Phone: [phone] Comment on above: Vitamin D 25(OH) Sta tus Range Deficiency <20 ng/mL (50nmol/L) Insufficiency 20 - 30 ng/mL (50 - 75 nmol/L) Sufficiency 30 - 100 ng/mL (75 - 250 nmol/L) Toxicity >100 ng/mL (>250 nmol/L) Platelets bldon 02-04-2022 Platelets (Bld) [#/Vol] 274 10*3/uL 150-450 [facility] Work Phone: Serum or plasma albumin mary alice urement (mass/volume)on 02-04-2022 Albumin [Mass/Vol] 4.2 g/dL 3.2-5.0 [facility] Work Phone: Serum or plasma albumin/glob ulin mass ratioon 02-04-2022 Albumin/Globulin [Mass ratio] 1.0 {ratio} 0.9-2.4 [facility] Work Phone: Serum or plasma calcium mary alice urement (mass/volume)on 02-04-2022 Calcium [Mass/Vol] 9.5 mg/dL 8.5-10.1 [facility] Work Phone: Serum or plasma cholesterol in HDL measurement (mass/volume)on 02-04-2022 Cholesterol in HDL [Mass/Vol] 51 mg/dL >40 [facility] Work Phone: Comment on above: The drugs N-Acetylcy steine and Metamizole may falsely depress this assay. Reference Range HDL <40 mg/dL Low HDL Cholesterol HDL >or= 60 mg/dL High HDL Cholesterol Serum or plasma cholesterol in VLDL measurement (mass/volume)on 02-04-2022 Cholesterol in VLDL [Mass/Vol] 24 mg/dL 5-40 [facility] Work Phone: Serum or plasma creatinine m easurement (mass/volume)on 02-04-2022 Creatinine [Mass/Vol] 0.80 mg/dL 0.55-1.02 [facility] Work Phone: Comment on above: The validity of the calculated GFR & GFRAA in patients over 70 years has not been determined. Clinical correlation is essential. Serum or plasma low density lipoprotein (LDL) cholesterol measurement (mass/volume)on 02-04-2022 Cholesterol in LDL [Mass/Vol] 172 mg/dL 0-130 [facility] Work Phone: Serum or plasma urea nitroge n measurement (mass/volume)on 02-04-2022 Urea nitrogen [Mass/Vol] 17 mg/dL 7-18 [facility] Work Phone: Thin prep Papanicolaou smear with manual screeningon 02-04-2022 Thin prep Papanicolaou smear with manual screening 15 U/L 15-37 [facility] Work Phone: Thin prep Papanicolaou smear with manual screening 5 5-15 [facility] Work Phone: Vital Signs Date Time Vital Sign Value Performing Clinician Facility 04-02-2025 09:47-0400 Body height 162.[address] Dylon Saab DO Work Phone: [facility] 04-02-2025 09:47-0400 Body mass index (BMI) [Ratio] 30 kg/m2 Dr. Dylon Saab DO Work Phone: [facility] 04-02-2025 09:47-0400 Body weight 79.[address] Dylon Saab DO Work Phone: [facility] 04-02-2025 09:47-0400 Diastolic blood pressure 79 mm[Hg] Dr. Dylon Saab DO Work Phone: [facility] 04-02-2025 09:47-0400 Heart rate 51 /min Dr. Dylon Saab DO Work Phone: [facility] 04-02-2025 09:47-0400 Respiratory rate 18 /min Dr. Dylon Saab DO Work Phone: [facility] 04-02-2025 09:47-0400 SaO2% (BldA) [Mass fraction] 98 % Dr. Dylon Saab DO Work Phone: [facility] 04-02-2025 09:47-0400 Systolic blood pressure 153 mm[Hg] Dr. Dylon Saab DO Work Phone: [facility] 02-14-2025 23:01-0400 Body temperature 97.1 [degF] Dr. Dylon Saab DO Work Phone: [facility] 02-14-2025 23:01-0400 Diastolic blood pressure 80 mm[Hg] Dr. Dylon Saab DO Work Phone: [facility] 02-14-2025 23:01-0400 Heart rate 75 /min Dr. Dylon Saab DO Work Phone: [facility] 02-14-2025 23:01-0400 Respiratory rate 16 /min Dr. Dylon Saab DO Work Phone: [facility] 02-14-2025 23:01-0400 SaO2% (BldA) [Mass fraction] 97 % Dr. Dylon Saab DO Work Phone: [facility] 02-14-2025 23:01-0400 Systolic blood pressure 138 mm[Hg] Dr. Dylon Saab DO Work Phone: [facility] 02-14-2025 19:57-0400 Body height 162.[address] Dylon Saab DO Work Phone: [facility] 02-14-2025 19:57-0400 Body mass index (BMI) [Ratio] 30.4 kg/m2 Dr. Dylon Saab DO Work Phone: [facility] 02-14-2025 19:57-0400 Body weight 80.[address] Dylon Saab DO Work Phone: [facility] 12-25-2022 13:21-0400 Body temperature 98.49 [degF] Krisstacie Aberegg PA Work Phone: [facility] 12-25-2022 13:21-0400 Body weight 74.75 kg Krislyn Aberegg PA Work Phone: [facility] 12-25-2022 13:21-0400 Diastolic blood pressure 80 mm[Hg] Krissreen Aberegg PA Work Phone: [facility] 12-25-2022 13:21-0400 Heart rate 104 /min Krislyn Aberegg PA Work Phone: [facility] 12-25-2022 13:21-0400 Respiratory rate 16 /min Krislyn Aberegg PA Work Phone: [facility] 12-25-2022 13:21-0400 SaO2% (BldA) [Mass fraction] 97 % Krislyn Aberegg PA Work Phone: [facility] 12-25-2022 13:21-0400 Systolic blood pressure 124 mm[Hg] Krislyn Aberegg PA Work Phone: [facility] Encounters Encounter Date Encounter Type Care Provider Facility Start: 04-22-2025 Non-patient / Non-visit Dr. Edilberto Mireles MD -[facility] Work Phone: Start: 04-22-2025 End: 04-22-[address] Dylon Saab DO Work Phone: -Pulmonary Services/Neurology Start: 04-22-2025 End: 04-22-[address] Edilberto Mireles MD -Pulmonary Services/Neurology Work Phone: Start: 04-22-2025 End: 04-22-2025 ambulatory Edilberto Mireles Facility:[facility] Start: 04-02-2025 End: 04-02-[address] Edilberto Mireles MD -[facility] Work Phone: Start: 04-02-2025 End: 04-02-[address] Dylon Saab DO Work Phone: -[facility] Start: 02-14-2025 End: 02-14-2025 Emergency department patient visit Dr. Dylon Saab DO Work Phone: -Emergency Department Work Phone: Start: 08-15-2024 End: 08-15-2024 ambulatory Dylon Saab Facility:[facility] Start: 12-26-2022 Telephone encounter Martin Sparks PA Work Phone: [facility] Comment on above: Results Start: 12-25-2022 End: 12-25-2022 ambulatory Facility:[facility] Start: 12-25-2022 End: 12-25-2022 Patient encounter procedure Martin BARGER Work Phone: [facility] Comment on above: Fever, unspecified f ever cause (Primary Dx) Start: 02-04-2022 End: 02-04-2022 Patient encounter procedure [facility] [place] Procedures Date Procedure Procedure Detail Performing Clinician Start: 02-14-2025 X-ray of chest, PA a nd lateral views Dr. Dylon Saab DO Work Phone: Start: 02-14-2025 D-dimer assay, quantitative Dr. Dylon Saab DO Work Phone: Comment on above: NORMAL D-Dimer level (<0.50) indicates no DVT or PE. Start: 02-14-[address] Dylon Saab DO Work Phone: Start: 12-25-2022 Urnls dip stick/tabl et rgnt auto w/o microscopy Martin BARGER Work Phone: Plan of Treatment Date Care Activity Detail Author Start: 04-02-2025 End: 04-02-2025 Evaluation of diagnostic study results [facility] Start: 02-14-2025 [facility] Start: 03-31-2023 Influenza vaccination INFLUENZ A (Season Ended) [facility] Start: 12-25-2022 End: 02-24-2023 Bacteria identified in Urine by Culture URINE CULTURE Microbiology Routine Fever, unspecified fever cause Expected: 12/25/2022, Expires: 02/24/2023 [facility] Work Phone: Comment on above: Expected: 12/25/2022 , Expires: 02/24/2023 Start: 07-31-2022 DEPRESSION ASSESSMENT DEPRESSION ASS ESSMENT [facility] Start: 2012 SHINGRIX VACCINE (1 of 2) SHINGRIX VACCINE (1 of 2) [facility] Start: 2007 COLOGUARD (FIT-DNA) COLOGUARD (FIT-D NA) [facility] Start: 2007 Colonoscopy COLONOSCOPY [facility] Start: 2007 COLORECTAL CANCER SCREENING COLORECTAL CANCER SCREENING [facility] Start: [address] COLONOGRAPHY [facility] Start: 2007 DIABETES SCREEN DIABETES SCREEN [facility] Start: 2007 FECAL OCCULT BLOOD FECAL OCCULT BLOO D [facility] Start: 2007 LIPID SCREEN LIPID SCREEN [facility] Start: 2007 SIGMOIDOSCOPY SIGMOIDOSCOPY [facility] Start: 2002 Mammography MAMMOGRAM [facility] Start: 1992 HPV TESTING HPV TESTING [facility] Start: 1983 PAP TESTING PAP TESTING [facility] Start: 1981 Urine microalbumin profile DTAP,TDAP,TD (1 - Tdap) [facility] Start: 1980 HEPATITIS C SCREENING HEPATITIS C SC REENING [facility] Start: 1980 HIV SCREENING HIV SCREENING [facility] Start: 03-03-1963 COVID-19 VACCINE (#1) COVID-19 VACCI NE (#1) [facility] 24 Hour ECG [place] Evaluation of diagno stic study results [facility] Hepatic function panel [facility] Lipid 1996 panel - S abhay or Plasma [facility] Patient Education ED Atrial Flutter [facility] Work Phone: Payers Date Payer Category Payer Self-pay 2022 Unknown [employer]LVIA [employer] PPO 2022-Present [phone] [address] [place] [address] PPO [id number] 2019 Unknown [id number] 2016 Unknown [id number] Unknown [id number] Unknown [id number] Unknown [id number] Unknown [id number] Social History Date Type Detail Facility Tobacco smoking status NHIS Unknown if ever smoked [facility] Work Phone: Start: 1960 Sex Assigned At Female [facility] Tobacco smoking status NHIS Tobacco smoking consumption unknown [facility] Work Phone: Start: 1960 Sex Assigned At Not on file [facility] Start: 02-14-2025 End: 04-02-2025 Tobacco smoking status NHIS Never smoked tobacco (finding) [facility] Sex Female [place] Mental Status Date Assessment Result Facility 02-14-2025 Cognitive function Level Of Cons ciousness Awake;Alert;Appropriate;Follow s Commands [facility] Work Phone: Clinical Notes 12-25-2022 to 04-02-2025 Note Date & Type Note Facility 04-02-2025 Evaluation note Diagnosis Onset Date Resolution Atrial flutter acute April 02, 2025 9:42am Hyperlipidemia acute April 02, 2025 9:42am Palpitations acute March 9:42am [facility] Work Phone: [phone] 347-719907-18-2025 Discharge summary [facility] Medical Records Department [address] [place] [id number] Emergency Department Summary 02/14/25 MR#: [id number] Acct: [id number] Name: ROSALINE BARRAZA Rep #:[id number] : 1960 64 From: Tala Huber PCP: Dr. Dylon Saab, DO Status:REG ER Location: ED HPI History of Present Illness Chief Complaint: Palpitations Informant: patient Narrative Narrative: Patient is a 64-year-old female denies any significant past medical history but does report a long send history of intermittent palpitations. She states [address] Coreas and also a Holter monitor. States her PCP at that time thought maybe she was having SVT. Ultimately it was felt that there is nothing going on and she was told she did not need to follow-up. She states shecontinues to have secondary to of palpitations every few days for this whole time. She states most the time before she can even say anything the sensation is already gone away. Today however she had palpitations lasted for an hour. She states she felt mildly short of breath or winded with it. Denies any associated chest pain. Denies any swelling of her legs. Is not on any blood thinners. Is never been diagnosed with atrial flutter or any type of arrhythmiaformally. Denies feeling lightheaded. Came in for further evaluation. States that she does drink 1 or 2 iced coffees a day. Also notes for the past month she has been taking a diet supplements which is Burn Evolved. PFSH [facility] Home Medications ?Medication ?Instructions ?Recorded ?Last Taken ?Type allopurinol 100 mg tablet 100 mg PO DAILY 02/14/25 Unk nown History alprazolam 1 mg tablet 1 - 2 mg PO QHS PRN PRN inso mnia 02/14/25 Unknown History escitalopram oxalate 20 mg tablet 20 mg PO QHS 5 Unknown History Allergy/AdvReac Type Severity Reaction Status Date / Time No Known Allergies Allergy Verified 02/14/25 19:57 Social History Smoking Status: Never smoker ROS [facility] ED Constitutional Constitutional ED: Denies chills, fever(s) or sweats ENT ENT ED: Denies sore throat Cardiovascular Cardiovascular: Reports palpitations and racing heartbeat; Denies chest pain Respiratory/Chest Respiratory/Chest: Reports cough; Denies dyspnea Gastrointestinal Gastrointestinal: Denies nausea or vomiting Musculoskeletal Musculoskeletal: Denies arthralgias or myalgias Hematologic/Lymphatic Hematologic/Lymphatic: Denies easy bleeding or easy bruising EXAM Physical Exam Const Vital Signs: 02/14/25 19:57 02/14/25 21:00 02/14/25 22:00 Temperature 98.3 F Temperature Source Oral Pulse Rate 155 H 94 85 Respiratory Rate 18 15 Blood Pressure 166/135 H 141/75 H 144/81 H Blood Pressure Mean 145 97 102 Pulse Ox 99 100 99 Oxygen Delivery Method Room Air Room Air Positive well nourished and well developed General Appearance ED: well developed and NAD HEENT Reports moist mucous membranes Neck supple and no JVD Chest Wall inspection of chest normal and palpation of chest normal Resp normal respiratory effort and clear to auscultation bilaterally Auscultation: Negative for rales, rhonchi or wheezes Cardio regular rate, regular rhythm and no murmurs GI normal to inspection, nondistended, normoactive bowel sounds, non-tender and non-distended Neuro oriented x3 Sensorium / Orientation: alert Motor Exam: Negative for general weakness Psych mental status grossly normal Skin no rashes or lesions noted MDM MDM MDM Narrative Medical decision making narrative: Patient evaluated for palpitations. Initial EKG obtained upon arrival shows atrial flutter with 2 1conduction at a rate of 148 beats per minutes. She is converted back to normal sinus rhythm and hasno complaints. States she is feeling much better. There is also diffuse ST abnormalities likely some endocardial injury. By the time I evaluated she has been having this palpitations for years but isnever actually been captured. Workup for undergoing cause of atrial flutter is obtained including CBC considering symptomatic anemia, BMP looking for electrolyte abnormality and TSH. Chest x-ray reviewed by myself as well as radiology does not show any acute process. Workup largely normal. She has a mildly elevated anion gap but she has a normalbicarb and normal electrolytes. She states has been drinking well. Her glucoseis mildly elevated at 172. Do not think this is enough to cause DKA. She is overall well-appearing with normal vital signs. Lab work otherwiseremarkable only for minimally elevated magnesium of 2.3. Patient's [id number] 2 score is 1. As a female she is low risk for stroke. Discussed that her yearly risk of stroke is 0.6%. Patient is comfortable holding off on anticoagulation at this time. Willfollow-up outpatient with cardiology. Given return precautions. Patient verbalized agreement or stands plan. Discharged home in stable condition peer Lab Data Attestation: I reviewed the patient's lab results. Labs: Laboratory Results - last 24 hr 02/14/25 20:25 WBC 10.5 RBC 5.08 Hgb 15.4 H Hct 45.4 MCV 89.4 MCH 30.3 MCHC 33.9 RDW Std Deviation 39.3 RDW Coeff of Ramy 12.0 Plt Count 316 MPV 10.4 Immature Gran % (Auto) 0.300 Neut % (Auto) 57.4 Lymph % (Auto) 34.2 [place] % (Auto) 5.5 Eos % (Auto) 1.8 Baso % (Auto) 0.8 Absolute Neuts (auto) 6.0 Absolute Lymphs (auto) 3.58 Nucleated RBC % 0 D-Dimer Quant (PE/DVT) 0.30 Sodium 140 Potassium 4.1 Chloride 98 Carbon Dioxide 24.7 Anion Gap 17 H BUN 9 Creatinine 0.95 Estim Creat Clear Calc 62.94 Est GFR (MDRD) Non-Af 67 BUN/Creatinine Ratio 9.9 L Glucose 172 H Calcium 10.6 Magnesium 2.3 H TSH 3.760 Radiography Diagnostic Testing: Clinical Impression(s) from Imaging Studies Chest X-Ray 02/14/25 21:20 IMPRESSION: No acute cardiopulmonary disease. Reading Location: [id number] Rhythm Strip Rhythm Strip: Atrial flutter Rate: 148 Ectopy: None EKG Initial EKG: Attestation: I personally reviewed and interpreted this EKG as follows: Interpretation: Atrial Flutter Comments: Atrial flutter rate of 148 bpm with 2-1 AV conduction Normal axis Diffuse ST depressions consistent with subendocardial injury Prior EKG tracings: not available for review Prior: No Prior Follow-up EKG: Attestation: I personally reviewed and interpreted this EKG as follows: Interpretation: Sinus Rhythm Comments: Normal sinus rhythm at a rate of 85 bpm Normal axis Normal intervals Normal Differential Diagnosis Chest pain/SOB: pulmonary embolism Reason(s) PE less likely: Positive for Well's<3, D-Dimer negative and not hypoxic, ACS ACS: Positive for history not suggestive of ischemia pain, pneumothorax Reason(s) pneumothorax less likely: 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 Reason(s) CHF less likely: Positive for no significant peripheral edema, no orthopnea and no evidence of fluid overload on CXR Discharge Plan Triage Chief Complaint: Palpitations ED Provider: Tala Oliveira Dx/Rx/DC Orders Clinical Impression: Atrial flutter, paroxysmal Instructions: ED Atrial Flutter Prescriptions: No Action alprazolam 1 mg tablet 1 - 2 mg PO QHS PRN PRN (Reason: insomnia) allopurinol 100 mg tablet 100 mg PO DAILY escitalopram oxalate 20 mg tablet 20 mg PO QHS Primary Care Provider: Dylon Saab Referrals: Manolo Coreas MD [Med Staff - Active Staff] - Dylon Saab DO [Primary Care Provider] - Activity Restrictions/Additional Instructions: Please stop taking your diet supplement as it could be causing atrial flutter inconjunction with your daily caffeine intake. Follow-up with cardiology call theoffice on Monday to schedule follow-up appointment. Let them know you are seen in the ER for new onset of atrial flutter. Please follow up with your family doctor as well. Your blood sugar was mildly elevated in the ER today. Print Language: Tuvaluan Disposition Disposition: Home, Self Care What to do if you have Problems For any increased pain, shortness of breath, bleeding, nausea or vomiting, chestpain, or any unexpected problems, contact your Primary Care Provider. Call [facility] ([phone]) or report tothe closest Emergency Room. Call 911 if necessary. 02/14/25 0830 Cosigner Signature (if applicable): CC: Dr. Dylon Saab DO ~ Signed [facility]07-18-2025 Radiology Diagnostic study note [facility] Imaging Services [address] [place], [place] [id number] Chest PA and Lateral MR#: [id number] Acct: [id number] Name: ROSALINE BARRAZA Rep #: [id number] : 1960 F 64 From: Raji Dodge MD PCP: Dr. Dylon Saab DO Status: REG ER Study:Chest PA and Lateral Date of Exam: 02/14/25 Exam# [id number] Ordering Dr: Jose Francisco Oliveira DO PROCEDURE: CHEST PA AND LATERAL 02/14/2025 REASON FOR EXAM: SOB TECHNIQUE: CHEST PA AND LATERAL COMPARISON: None. FINDINGS: Lungs/Pleura: Clear. Heart/Mediastinum: Normal in size. Bones/Soft tissues: Mild degenerative changes of the thoracic spine. RAD/Chest PA and Lateral IMPRESSION: No acute cardiopulmonary disease. Reading Location: [id number] CC: Dr. Tala Oliveira DO; Dr. Dylon Saab DO ~ Clinical Fellow: Signed [facility]07-18-2025 Discharge summary Author Tala Oliveira [facility] Note Date/Time February 14, 2025 10:5 3pm [facility] Medical Records Department [address] [place] [place] [address] Emergency Department Summary 02/14/25 MR#: [id number] Acct: [id number] Name: ROSALINE BARRAZA Rep #:[id number] : 1960 64 From: Tala Huber PCP: Dr. Dylon Saab DO Status:REG ER Location: ED HPI History of Present Illness Chief Complaint: Palpitations Informant: patient Narrative Narrative: Patient is a 64-year-old female denies any significant past medical history but does report a long send history of intermittent palpitations. She states [address] Coreas and also a Holter monitor. States her PCP at that time thought maybe she was having SVT. Ultimately it was felt that there is nothing going on and she was told she did not need to follow-up. She states shecontinues to have secondary to of palpitations every few days for this whole time. She states most the time before she can even say anything the sensation is already gone away. Today however she had palpitations lasted for an hour. She states she felt mildly short of breath or winded with it. Denies any associated chest pain. Denies any swelling of her legs. Is not on any blood thinners. Is never been diagnosed with atrial flutter or any type of arrhythmiaformally. Denies feeling lightheaded. Came in for further evaluation. States that she does drink 1 or 2 iced coffees a day. Also notes for the past month she has been taking a diet supplements which is Burn Evolved. PFSH PFSH Home Medications ?Medication ?Instructions ?Recorded ?Last Taken ?Type allopurinol 100 mg tablet 100 mg PO DAILY 02/14/25 Unk nown History alprazolam 1 mg tablet 1 - 2 mg PO QHS PRN PRN inso mnia 02/14/25 Unknown History escitalopram oxalate 20 mg tablet 20 mg PO QHS 5 Unknown History Allergy/AdvReac Type Severity Reaction Status Date / Time No Known Allergies Allergy Verified 02/14/25 19:57 Social History Smoking Status: Never smoker ROS ROS ED Constitutional Constitutional ED: Denies chills, fever(s) or sweats ENT ENT ED: Denies sore throat Cardiovascular Cardiovascular: Reports palpitations and racing heartbeat; Denies chest pain Respiratory/Chest Respiratory/Chest: Reports cough; Denies dyspnea Gastrointestinal Gastrointestinal: Denies nausea or vomiting Musculoskeletal Musculoskeletal: Denies arthralgias or myalgias Hematologic/Lymphatic Hematologic/Lymphatic: Denies easy bleeding or easy bruising EXAM Physical Exam Const Vital Signs: 02/14/25 19:57 02/14/25 21:00 02/14/25 22:00 Temperature 98.3 F Temperature Source Oral Pulse Rate 155 H 94 85 Respiratory Rate 18 15 Blood Pressure 166/135 H 141/75 H 144/81 H Blood Pressure Mean 145 97 102 Pulse Ox 99 100 99 Oxygen Delivery Method Room Air Room Air Positive well nourished and well developed General Appearance ED: well developed and NAD HEENT Reports moist mucous membranes Neck supple and no JVD Chest Wall inspection of chest normal and palpation of chest normal Resp normal respiratory effort and clear to auscultation bilaterally Auscultation: Negative for rales, rhonchi or wheezes Cardio regular rate, regular rhythm and no murmurs GI normal to inspection, nondistended, normoactive bowel sounds, non-tender and non-distended Neuro oriented x3 Sensorium / Orientation: alert Motor Exam: Negative for general weakness Psych mental status grossly normal Skin no rashes or lesions noted MDM MDM MDM Narrative Medical decision making narrative: Patient evaluated for palpitations. Initial EKG obtained upon arrival shows atrial flutter with 2 1 conduction at a rate of 148 beats per minutes. She is converted back to normal sinus rhythm and has no complaints. States she is feeling much better. There is also diffuse ST abnormalities likely some endocardial injury. By the time I evaluated she has been having this palpitations for years but is never actually been captured. Workup for undergoing cause of atrial flutter is obtained including CBC considering symptomatic anemia, BMP looking for electrolyte abnormality and TSH. Chest x-ray reviewed by myself as well as radiology does not show any acute process. Workup largely normal. She has a mildly elevated anion gap but she has a normalbicarb and normal electrolytes. She states has been drinking well. Her glucoseis mildly elevated at 172. Do not think this is enough to cause DKA. She is overall well-appearing with normal vital signs. Lab work otherwise remarkable only for minimally elevated magnesium of 2.3. Patient's [id number] 2 score is 1. As a female she is low risk for stroke. Discussed that her yearly risk of stroke is 0.6%. Patient is comfortable holding off on anticoagulation at this time. Will follow-up outpatient with cardiology. Given return precautions. Patient verbalized agreement or stands plan. Discharged home in stable condition peer Lab Data Attestation: I reviewed the patient's lab results. Labs: Laboratory Results - last 24 hr 02/14/25 20:25 WBC 10.5 RBC 5.08 Hgb 15.4 H Hct 45.4 MCV 89.4 MCH 30.3 MCHC 33.9 RDW Std Deviation 39.3 RDW Coeff of Ramy 12.0 Plt Count 316 MPV 10.4 Immature Gran % (Auto) 0.300 Neut % (Auto) 57.4 Lymph % (Auto) 34.2 [place] % (Auto) 5.5 Eos % (Auto) 1.8 Baso % (Auto) 0.8 Absolute Neuts (auto) 6.0 Absolute Lymphs (auto) 3.58 Nucleated RBC % 0 D-Dimer Quant (PE/DVT) 0.30 Sodium 140 Potassium 4.1 Chloride 98 Carbon Dioxide 24.7 Anion Gap 17 H BUN 9 Creatinine 0.95 Estim Creat Clear Calc 62.94 Est GFR (MDRD) Non-Af 67 BUN/Creatinine Ratio 9.9 L Glucose 172 H Calcium 10.6 Magnesium 2.3 H TSH 3.760 Radiography Diagnostic Testing: Clinical Impression(s) from Imaging Studies Chest X-Ray 02/14/25 21:20 IMPRESSION: No acute cardiopulmonary disease. Reading Location: [facility] Rhythm Strip Rhythm Strip: Atrial flutter Rate: 148 Ectopy: None EKG Initial EKG: Attestation: I personally reviewed and interpreted this EKG as follows: Interpretation: Atrial Flutter Comments: Atrial flutter rate of 148 bpm with 2-1 AV conduction Normal axis Diffuse ST depressions consistent with subendocardial injury Prior EKG tracings: not available for review Prior: No Prior Follow-up EKG: Attestation: I personally reviewed and interpreted this EKG as follows: Interpretation: Sinus Rhythm Comments: Normal sinus rhythm at a rate of 85 bpm Normal axis Normal intervals Normal Differential Diagnosis Chest pain/SOB: pulmonary embolism Reason(s) PE less likely: Positive for Well's<3, D-Dimer negative and not hypoxic, ACS ACS: Positive for history not suggestive of ischemia pain, pneumothorax Reason(s) pneumothorax less likely: 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 Reason(s) CHF less likely: Positive for no significant peripheral edema, no orthopnea and no evidence of fluid overload on CXR Discharge Plan Triage Chief Complaint: Palpitations ED Provider: Tala Oliveira Dx/Rx/DC Orders Clinical Impression: Atrial flutter, paroxysmal Instructions: ED Atrial Flutter Prescriptions: No Action alprazolam 1 mg tablet 1 - 2 mg PO QHS PRN PRN (Reason: insomnia) allopurinol 100 mg tablet 100 mg PO DAILY escitalopram oxalate 20 mg tablet 20 mg PO QHS Primary Care Provider: Dylon Saab Referrals: Manolo Coreas MD [Med Staff - Active Staff] - Dylon Saab DO [Primary Care Provider] - Activity Restrictions/Additional Instructions: Please stop taking your diet supplement as it could be causing atrial flutter inconjunction with your daily caffeine intake. Follow-up with cardiology call theoffice on Monday to schedule follow-up appointment. Let them know you are seen in the ER for new onset of atrial flutter. Please follow up with your family doctor as well. Your blood sugar was mildly elevated in the ER today. Print Language: Tuvaluan Disposition Disposition: Home, Self Care What to do if you have Problems For any increased pain, shortness of breath, bleeding, nausea or vomiting, chestpain, or any unexpected problems, contact your Primary Care Provider. Call [facility] ([phone]) or report to the closest Emergency Room. Call 911 if necessary. 02/14/25 6410 <Electronically signed by Tala Godman DO> Cosigner Signature (if applicable): CC: Dr. Dylon Saab, ~ Signed [facility] Work Phone: 1(387) 669-495005-29-2023 Miscellaneous Notes* Telephone Encounter - Herminio Anderson - 12/26/2022 2:14 PM EDT Patient given results and verbalized understanding of instructions given. Herminio Anderson * Telephone Encounter - DENITA Zamora - 12/26/2022 2:03 PM EDT Please let patient know urine culture came back negative for bacterial growth. She may stop antibiotic. Please follow-up with PCP for continued fevers. [facility] NoteHNO ID: [id number] Author: DENITA Zamora Service: ? Author Type: Physician [employer] Crossing Guard Type: Progress Notes Filed: 12/25/2022 1:40 PM Note Text: This note was created using AutoSpotter. Subjective Rosaline Barraza is a 62 year old female. HPI [...] discussed in detail warranting prompt ER evaluation. Martin Sparks, [facility]05-28-2023 History of Present illness Narrative* Martin Sparks, PA - 12/25/2022 1:29 PM EDT This note was created using RadioFrame. Subjective Rosaline Barraza is a 62 year old female. HPI [...] is no right CVA tenderness, left CVA tendernessor guarding. Neurological: Mental Status: She is alert. [...] ER evaluation. DENITA Zamora documented in this encounterAd[facility] noteNo assessment information availableWMetroHealth [facility] Work Phone: Evaluation note* Diagnosis Fever, unspecified fever cause- Primary documented in this encounter [facility] note* Diagnosis Onset Date Resolution Status Admit Date Hyperlipidemia acute April 02, 2025 9:42am [facility] Work Phone: Hospital Discharge instructionsAdditional Instructions Please stop taking your diet supplement as it could be causing atrial flutter in conjunction with your daily caffeine intake. Follow-up with cardiology call the office on Monday to schedule follow-up appointment. Let them know you are seen in the ER for new onset of atrial flutter. Please follow up with your family doctor as well. Your blood sugar was mildly elevated in the ER today.[facility] Work Phone: Reason for referral (narrative)No reason for referral information availableWMetroHealth [facility] Work Phone: Summary Purpose Family History No Family History Records Found Relationship Condition Age at Onset Recorded Date/T ivy father Cardiac disease Unknown Kidney disorder Unknown Hypertension Unknown Diabetes mellitus Unknown mother Cerebrovascular accident (CVA) Unknown Malignant neoplasm Unknown Advance Directives No Advanced Directives Records Found Advance Directive Response Recorded Date/ Time Do you have a Healthcare Power of Engineering Writer? No February 14, 2025 8:24pm Chief Complaint and Reason for Visit Chief Complaint Admit Date RAPID HEART RATE February 14, 2025 7:56 pm Chief Complaint Admit Date RAPID HEART RATE February 14, 2025 7:56 pm AFIB ([facility]) April 02, 2025 9:42am Reason for Visit Admit Date Hyperlipidemia April 02, 2025 9:42am Chief Complaint Admit Date RAPID HEART RATE February 14, 2025 7:56 pm AFIB ([facility] ER) April 02, 2025 9:42am Paroxysmal atrial fibrillation April 22, 2025 8:15am Paroxysmal atrial fibrillation April 22, 2025 8:33am Reason for Visit Admit Date Atrial flutter April 02, 2025 9:42am Hyperlipidemia April 02, 2025 9:42am Palpitations April 02, 2025 9:42am Additional Source Comments Goals (unrecognized section and content) Goals may be documented in a n alternate sectionGoals may be documented in an alternate sectionGoals may be documented in an alternate sectionGoals may be documented in an alternate section INFORMATION SOURCE (unrecogn ized section and content) DATE CREATED AUTHOR 01/06/2023 [facility] DATE CREATED AUTHOR 'S KEENA LEW 05/06/2025 [facility] Source Comments (unrecognize d section and content) In the event this informatio n is protected by the Federal Confidentiality of Alcohol and Drug Abuse Patient Records regulations: The Federal rules restrict any use of the information to criminally investigate or prosecute any alcohol or drug abuse patient.Memorial HospitalIn the event this information is protected by the Federal Confidentiality of Alcohol and Drug Abuse Patient Records regulations: The Federal rules restrict any use of the information to criminally investigate or prosecute any alcohol or drug abuse patient.[facility] Reason for Visit (unrecogniz ed section and content) Reason Comments Fever x 4 days, started te rbinafine on Monday, symptoms started but no fever Reason Comments Results Care Teams (unrecognized sec tion and content) Team Status: Active Member Role/Relationship Status Dates Dr. Dylon Saab DO Primary Care Provider Active Team Status: Inactive Member Role/Relationship Status Dates Dr. Dylon Saab DO Primary Care Provider Active Start: February 14, 2025 End: February 14, 2025 Dr. Tala Oliveira DO Emergency Provider Active Start: February 14, 2025 End: February 14, 2025 Team Status: Inactive Member Role/Relationship Status Dates Dr. Dylon Saab DO Primary Care Provider Active Start: February 14, 2025 End: February 14, 2025 Dr. Tala Oliveira DO Attending Provider Active Start: February 14, 2025 End: February 14, 2025 Dr. Tala Oliveira DO Emergency Provider Active Start: February 14, 2025 End: February 14, 2025 Team Status: Inactive Member Role/Relationship Status Dates Dr. Dylon Saab DO Primary Care Provider Active Start: April 02, 2025 End: April 02, 2025 Dr. Dylon Saab DO Referring Provider Active Start: April 02, 2025 End: April 02, 2025 Dr. Edilberto Mireles MD Attending Provider Active Start: April 02, 2025 End: April 02, 2025 Team Status: Active Member Role/Relationship Status Dates Dr. Dylon Saab DO Primary care physician Active Team Status: Inactive Member Role/Relationship Status Dates Dr. Dylon Saab DO Primary care physician Active Start: February 14, 2025 End: February 14, 2025 Dr. Tala Oliveira DO Attending physician Active Start: February 14, 2025 End: February 14, 2025 Dr. Tala Oliveira DO Emergency Department Physician Active Start: February 14, 2025 End: February 14, 2025 Team Status: Inactive Member Role/Relationship Status Dates Dr. Dylon Saab DO Primary care physician Active Start: April 02, 2025 End: April 02, 2025 Dr. Dylon Saab DO Referring Provider Active Start: April 02, 2025 End: April 02, 2025 Dr. Edilberto Mireles MD Attending physician Active Start: April 02, 2025 End: April 02, 2025 Team Status: Inactive Member Role/Relationship Status Dates Dr. Dylon Saab DO Primary care physician Active Start: April 22, 2025 End: April 22, 2025 Dr. Edilberto Mireles MD Attending physician Active Start: April 22, 2025 End: April 22, 2025 Dr. Edilberto Mireles MD Referring Provider Active Start: April 22, 2025 End: April 22, 2025 Team Status: Active Member Role/Relationship Status Dates Dr. Dylon Saab DO Primary care physician Active Start: April 22, 2025 Dr. Edilberto Mireles MD Attending physician Active Start: April 22, 2025 Dr. Edilberto Mireles MD Referring Provider Active Start: April 22, 2025 FOR RECORDS PERTAINING TO PATIENTS WHO ARE [...] BE BASED ON THE PRIMARY CLINICAL RECORDS. [facility] [employer] [facility]. provides no warranty or guarantee of the accuracy or completeness of information in this document.
--- NOTE | 2025-05-26 07:04 | ED.VIS.STROK ---
HPI History of Present Illness Chief Complaint: Stroke Alert Informant: patient and family Narrative Narrative: 64-year-old female presents with about 1 hours worth of vision loss in the left eye. It is painless. Started all of a sudden she states she was getting ready for work and all of a sudden she lost vision she cannot see any light and has been states that her pupil did not seem to be reactive when he shined light in it. She denies any problems in the right eye or her extremities or problems with speech. She denies headache. Denies any recent injury. She was awake when this occurred and when she woke up her eyesight was fine. She states now that she is here her tongue is feeling numb. She denies any other symptoms. She never had this before. She takes no anticoagulants but has a history of a flutter in the past. [facility] Medical History Prediabetes Gout Hyperlipidemia Palpitations Atrial flutter Home Medications Medication Instructions Recorded Last Taken Type allopurinol 100 mg tablet 100 mg PO DAILY 02/14/25 Unknown History alprazolam 1 mg tablet 1 - 2 mg PO QHS PRN PRN insomnia 02/14/25 Unknown History escitalopram oxalate 20 mg tablet 20 mg PO QHS 02/14/25 Unknown History Nervive PO DAILY 04/02/25 Unknown History Prevagen PO DAILY 04/02/25 Unknown History aspirin 81 mg tablet 81 mg PO QDAY #60 tabs 04/02/25 Unknown Rx cholecalciferol (vitamin D3) 125 125 mcg PO QDAY 04/02/25 Unknown History mcg (5,000 unit) capsule multivitamin 1 tab PO QDAY 04/02/25 Unknown History rosuvastatin 10 mg tablet 10 mg PO QDAY #30 tabs 04/02/25 Unknown Rx Allergy/AdvReac Type Severity Reaction Status Date / Time No Known Allergies Allergy Verified 05/26/25 06:59 Family History Father Heart disease Kidney disease Hypertension Diabetes Mother CVA (cerebral vascular accident) Cancer Diabetes Hypertension Surgical History History of dilatation and curettage Social History Smoking Status: Never smoker alcohol intake: never substance use type: does not use caffeine: Yes ROS ROS ED Constitutional Constitutional ED: Denies chills or fever(s) Eyes Eyes: Reports change in vision left; Denies diplopia ENT ENT ED: Denies rhinorrhea or sore throat Cardiovascular Cardiovascular: Denies chest pain or palpitations Respiratory/Chest Respiratory/Chest: Denies cough or dyspnea Gastrointestinal Gastrointestinal: Denies abdominal pain, diarrhea, nausea or vomiting Genitourinary Genitourinary ED: Denies dysuria or hematuria Musculoskeletal Musculoskeletal: Denies back pain or neck pain Integumentary Denies abscess or rash Neurologic Neurologic: Denies headache(s), paresthesias or weakness Psychiatric Psychiatric: Denies anxiety or suicidal thoughts EXAM Physical Exam Const Vital Signs: 05/26/25 06:58 05/26/25 07:00 05/26/25 07:08 Temperature 98.3 F 98.3 F Temperature Source Oral Oral Pulse Rate 68 64 64 Respiratory Rate 18 18 Blood Pressure 183/94 H 183/90 H 183/90 H Blood Pressure Mean 123 121 121 Pulse Ox 100 100 100 Oxygen Delivery Method Room Air Room Air Room Air 05/26/25 07:15 05/26/25 07:17 05/26/25 07:31 Temperature Temperature Source Pulse Rate 66 59 L Respiratory Rate 18 Blood Pressure 164/84 H 142/85 H Blood Pressure Mean 110 104 Pulse Ox 100 100 Oxygen Delivery Method Room Air Room Air Room Air Positive well nourished and well developed General Appearance ED: well developed and NAD HEENT Reports moist mucous membranes normocephalic and atraumatic Eyes PERRL and EOMs intact bilaterally Eyes Narrative: Normal-appearing eyes, left eye is less reactive, patient cannot see anything out of it. Visual knox are intact throughout the right eye. Neck full ROM and supple Resp normal respiratory effort and clear to auscultation bilaterally Cardio regular rate, regular rhythm and no murmurs GI non-tender and non-distended Auscultation: normoactive bowel sounds Palpation: soft Back/Spine no CVA tenderness General Back: other FROM Extremity normal to inspection General Extremety ED: Negative for edema, pulses abnormal or tenderness General Extremity: Negative for edema or pulses abnormal Neuro oriented x3, CN's II-XII intact bilaterally and no sensory deficits noted Neuro Narrative: Normal speech and perception no aphasia or dysarthria. Normal [id number] and [id number] bilaterally. Sensorium / Orientation: awake and alert Motor Exam: strength 5/5 throughout Psych mental status grossly normal Skin no rashes or lesions noted and no wounds MDM MDM MDM Narrative Medical decision making narrative: Circular was called, patient technically has an NIH of 0 given that her intact eye has normal visual knox intact, and she does not have any other focal deficits. I discussed this with stroke neurology as soon as the patient return from CT, I reviewed the CT images and I agree with the neurologist that scan showed no bleed and no LVO, and after discussing this with him our suspected diagnosis is central retinal artery occlusion, and he states he does not recommend thrombolytics for this case understanding that the patient meets criteria otherwise with regards to the fact that she does not have any contraindications. He recommends loading the patient with aspirin 324 and clopidogrel 300 which we will do after she passes her dysphagia screen. Patient does have hypertension right now 183/90, and she is in sinus rhythm. She has had intermittent atrial flutter in the past. She states she feels that every time she is in it and the last time this was the case was April 16. She was in her for an hour or 2. She does not have atrial flutter very often and has followed with cardiology for this and is not anticoagulated but takes a baby aspirin daily, her [id number] score has been 1. I discussed with ophthalmology Dr. Jacobo who will be able to see and evaluate the patient on the inpatient side here. With observation the patient's blood pressures down to 142/85. History & Record Review Additional record(s) reviewed:: Prior outpatient record (cardiology visit 03/2025; holter showed only PACs) Lab Data Attestation: I reviewed the patient's lab results. Labs: Laboratory Results - last 24 hr 05/26/25 05/26/25 07:01 07:02 WBC 8.2 RBC 4.30 Hgb 13.0 Hct 39.9 MCV 92.8 MCH 30.2 MCHC 32.6 RDW Std Deviation 41.2 RDW Coeff of Ramy 12.2 Plt Count 230 MPV 10.2 Immature Gran % (Auto) 0.500 Neut % (Auto) 47.9 Lymph % (Auto) 40.3 [place] % (Auto) 6.9 Eos % (Auto) 3.4 Baso % (Auto) 1.0 Absolute Neuts (auto) 3.9 Absolute Lymphs (auto) 3.29 Nucleated RBC % 0 PT 12.4 INR 0.9 APTT 26.2 Sodium 142 Potassium 4.3 Chloride 106 Carbon Dioxide 27.7 Anion Gap 8 BUN 16 Creatinine 0.72 Estim Creat Clear Calc 82.75 Est GFR (MDRD) Non-Af 95 BUN/Creatinine Ratio 21.8 H Glucose 150 H Calcium 9.4 Troponin T High Sens 7 POC Glucose 126 H Radiography Diagnostic Testing: Clinical Impression(s) from Imaging Studies Brain CT 05/26/25 07:01 IMPRESSION: No acute intracranial pathology. Reading Location: [facility] Head/Neck CTA 05/26/25 07:01 IMPRESSION: Calcified and soft plaque are noted at the ICA origin on the left with 25% diameter stenosis Reading Location: [facility] Rhythm Strip Rhythm Strip: Sinus Rhythm Rate: 70 Ectopy: None EKG Initial EKG: Attestation: I personally reviewed and interpreted this EKG as follows: Interpretation: Sinus Rhythm and No Acute Injury Pattern Comments: Nml axis & intervals; nml EKG Prior EKG tracings: available for review Prior: Unchanged Management Discussion w/another healthcare provider: Hospitalist and Market Investigator (stroke neurology, ophthalmology) Critical Care Time Critical Care Time: Yes Critical care time (excluding procedures): 30-74 minutes (33 min), Including time spent:, Discussing w/Patient &/or Family/Comic Book Designer, Discussing w/Consultants, Arranging Admission or Transfer and Performing Direct Patient Care at Bedside Discharge Plan Dx/Rx/DC Orders Clinical Impression: Sudden visual loss, left eye, Atrial flutter, paroxysmal, Paresthesia of tongue Disposition Disposition: Acute Care Hospital [facility] NIHSS NIHSS 1a. Level of Consciousness: 0 - Alert; keenly responsive 1b. LOC Questions: 0 - Answers BOTH questions correctly 1c. LOC Commands: 0 - Performs BOTH tasks correctly 2. Best Gaze: 0 - Normal 3. Visual: 0 - No visual loss 4. Facial Palsy: 0 - Normal symmetrical movements 5a. Left Arm: 0 - No drift; arm holds 90 (or 45) degrees for full 10 seconds 5b. Right Arm: 0 - No drift; arm holds 90 (or 45) degrees for full 10 seconds 6a. Left Le - No drift; leg holds 30-degree position for full 5 seconds 6b. Right Le - No drift; leg holds 30-degree position for full 5 seconds 7. Limb Ataxia: 0 - Absent 8. Sensory: 0 - Normal; no sensory loss 9. Best Language: 0 - No aphasia; normal 10. Dysarthria: 0 - Normal 11. Extinction and Inattention: 0 - No abnormality Total: 0 Stroke Questions Stroke Team Activated: Yes Reviewed Inclusion/Exclusion criteria: Yes IV Thrombolytic Administered: No (per stroke neurology recommendations)
[2025-05-26 07:20] LABS: Hematocrit 39.9 % (37-47); Hemoglobin 13.0 g/dL (12.0-15.0); Immature Granulocytes Count 0.040 X10^3/uL (0.0-0.0); Mean Corp Hgb Conc 32.6 g/dL (32-36); Mean Corpuscular Volume 92.8 fL (81-99); Mean Platelet Vol. 10.2 fl (6.2-12.0); NRBC Flagged by Analyzer 0 % (0-5); Platelet Count 230 K/mm3 (150-450); RBC Distribution Width CV 12.2 % (11.6-14.6); RBC Distribution Width SD 41.2 fl (35.1-43.9); Red Blood Count 4.30 M/mm3 (4.2-5.4); White Blood Count 8.2 K/mm3 (4.4-11.0)
--- NOTE | 2025-05-26 07:23 | ED.RN ---
pharmacy called per dr rogers request to let them know there will be no thrombolytics
[2025-05-26 07:29] LABS: Prothrombin Time (Protime)PT. 12.4 SECONDS (11.7-14.9)
[2025-05-26 07:30] LABS: Partial Thromboplast Time 26.2 Seconds (24.1-36.2)
[2025-05-26 07:46] LABS: Anion Gap 8 (5-15); BUN 16 mg/dL (4-19); BUN/Creat Ratio 21.8 RATIO (10-20); Calcium,Total 9.4 mg/dL (7.6-11.0); Carbon Dioxide 27.7 mmol/L (21.0-32.0); Chloride 106 mmol/L (98-108); Estimated Creatinine Clearance 82.75 ml/min (50-250); Glucose 150 mg/dL (70-99); Potassium 4.3 mmol/L (3.3-5.1); Troponin T High Sensitivity 7 ng/L (<=14)
--- NOTE | 2025-05-26 08:14 | MRI_ITS ---
PROCEDURE: BRAIN WITHOUT CONTRAST 05/26/2025 REASON FOR EXAM: CVA TECHNIQUE: Procedure Code: MRIBR Modality: MR Procedure: BRAIN WITHOUT CONTRAST Multiplanar and multisequence images were obtained. COMPARISON: CT head dated earlier on the same day. FINDINGS: The brain parenchyma appears unremarkable. The jean-white matter differentiation is appropriate. The ventricles are normal in size and configuration. No midline shift. The midline structures are intact, specifically the corpus callosum, septum pellucidum, pituitary gland, and cerebellar vermis. The cervicomedullary junction appears unremarkable. The paranasal sinuses and mastoid air cells are clear. Diffusion-weighted images demonstrate no restricted diffusion. No MR evidence of acute ischemia. MRI/Brain without Contrast IMPRESSION: Unremarkable MRI of the brain without contrast. Reading Location: [id number]
--- NOTE | 2025-05-26 08:16 | PCM.HP.STD ---
HPI - General General Date of Admission: 05/26/25 Date of Service: 05/26/25 Chief Complaint: Sudden visual loss in the left eye HPI Narrative ROSALINE MACIAS, is a 64 F with past medical history significant for dyslipidemia who presented to the emergency department with sudden visual loss in the left eye. Per patient she woke up in her usual state of health and was carrying out about her usual activities of daily living when she suddenly realized she could not see from the left eye. She also did notice some numbness involving the left side of her face as well as tongue. In view of the persistence of her symptoms presented to the emergency department. Initial imaging studies obtained came back unremarkable. [facility] teleneurology recommended no TNK. Subsequently admitted to a monitored bed for further inpatient evaluation and management [facility] Medical History Prediabetes Gout Hyperlipidemia Palpitations Atrial flutter Home Medications Medication Instructions Recorded Last Taken Type allopurinol 100 mg tablet 100 mg PO DAILY 02/14/25 Unknown History alprazolam 1 mg tablet 1 - 2 mg PO QHS PRN PRN insomnia 02/14/25 Unknown History escitalopram oxalate 20 mg tablet 20 mg PO DAILY 02/14/25 Unknown History cholecalciferol (vitamin D3) 125 125 mcg PO QDAY 04/02/25 Unknown History mcg (5,000 unit) capsule multivitamin 1 tab PO QDAY 04/02/25 Unknown History rosuvastatin 10 mg tablet 10 mg PO QDAY #30 tabs 04/02/25 Unknown Rx aspirin 81 mg chewable tablet 1 tab PO DAILY 05/26/25 Unknown History (Aspirin Childrens) Allergy/AdvReac Type Severity Reaction Status Date / Time No Known Allergies Allergy Verified 05/26/25 06:59 Family History Father Heart disease Kidney disease Hypertension Diabetes Mother CVA (cerebral vascular accident) Cancer Diabetes Hypertension Surgical History History of dilatation and curettage Social History Smoking Status: Never smoker alcohol intake: never substance use type: does not use caffeine: Yes ROS ROS Narrative GENERAL: denies fever, chills, night sweats, weight loss, anorexia HEENT: denies headache, sinus congestion, or drainage, dysphagia RESPIRATORY: denies cough, sputum production, shortness of breath, dyspnea on exertion CARDIAC: denies chest pain, palpitations, orthopnea, PND GASTROINTESTINAL: denies abdominal pain, nausea, vomiting, melena, GENITOURINARY: denies dysuria, urgency, frequency, heamaturia EXTREMITY: denies swelling MUSCULOSKELETAL: denies current joint pain or tenderness NEUROLOGIC: denies focal numbness, weakness, tingling HEMATOLOGIC: denies easy bruising and/or hemorrhage INTEGUMENT: denies rashes PSYCHIATRIC: denies suicidal or homicidal ideation Vital Signs Vital Signs Vital Signs: 05/26/25 06:58 05/26/25 07:00 05/26/25 07:08 Temperature 98.3 F 98.3 F Temperature Source Oral Oral Pulse Rate 68 64 64 Respiratory Rate 18 18 Blood Pressure 183/94 H 183/90 H 183/90 H Blood Pressure Mean 123 121 121 Pulse Ox 100 100 100 Oxygen Delivery Method Room Air Room Air Room Air 05/26/25 07:15 05/26/25 07:17 05/26/25 07:31 Temperature Temperature Source Pulse Rate 66 59 L Respiratory Rate 18 Blood Pressure 164/84 H 142/85 H Blood Pressure Mean 110 104 Pulse Ox 100 100 Oxygen Delivery Method Room Air Room Air Room Air Weight Weight: 79.7 kg Body Mass Index (BMI) 30.1 Physical Exam Narrative GENERAL: cooperative HEENT: Atraumatic; normocephalic, complete visual loss in the left eye EYES; Anicteric, Normal Conjunctiva NECK; supple, normal thyroid, RESPIRATORY: Diminished to auscultation CARDIOVASCULAR: Regular S1 S2, GI: soft, normoactive bowel sounds, : No Renal angle tenderness; EXTREMITIES: No edema, no clubbing, MUSCULOSKELETAL: no muscle wasting NEURO: Awake; no lateralizing signs. SKIN: No Rash PSYCH; Flat affect Results Lab / Micro Data 05/26/25 07:02 05/26/25 07:02 Labs: Laboratory Results - last 24 hr 05/26/25 07:01: POC Glucose 126 H 05/26/25 07:02: WBC 8.2, RBC 4.30, Hgb 13.0, Hct 39.9, MCV 92.8, MCH 30.2, MCHC 32.6, RDW Std Deviation 41.2, RDW Coeff of Ramy 12.2, Plt Count 230, MPV 10.2, Immature Gran % (Auto) 0.500, Neut % (Auto) 47.9, Lymph % (Auto) 40.3, [place] % (Auto) 6.9, Eos % (Auto) 3.4, Baso % (Auto) 1.0, Absolute Neuts (auto) 3.9, Absolute Lymphs (auto) 3.29, Nucleated RBC % 0, PT 12.4, INR 0.9, APTT 26.2, Sodium 142, Potassium 4.3, Chloride 106, Carbon Dioxide 27.7, Anion Gap 8, BUN 16, Creatinine 0.72, Estim Creat Clear Calc 82.75, Est GFR (MDRD) Non-Af 95, BUN/Creatinine Ratio 21.8 H, Glucose 150 H, Calcium 9.4, Troponin T High Sens 7 Rhythm Strip Rhythm Strip: Sinus Rhythm Rate: 70 Ectopy: None Imaging Radiology Impression Brain CT 05/26/25 07:01 IMPRESSION: No acute intracranial pathology. [facility]Neck [facility]A 05/26/25 07:01 IMPRESSION: Calcified and soft plaque are noted at the ICA origin on the left with 25% diameter stenosis Reading Location: [facility] Assessment & Plan Assessment/Plan (1) Sudden visual loss, left eye: (2) Atrial flutter, paroxysmal: (3) Hyperlipidemia: QUALIFIERS: Hyperlipidemia type: pure hypercholesterolemia Qualified Code(s): E78.00 - Pure hypercholesterolemia, unspecified PLAN: Plan Patient is a 64-year-old lady presented with sudden visual loss in the left eye 1. Visual loss in the left eye – Differential diagnoses include central retinal artery occlusion. Patient admitted to a monitored bed as part of the management ordered MRI as well as CTA of the head and neck all of which so far negative to date. Canal Structure Operator on-call Dr. Hinton had been consulted from the ED will await his recommendation. Ordered 2D echo patient started on clopidogrel in addition to her aspirin. Consult was also placed to [facility] 2. Dyslipidemia –Patient is on statin therapy, continued at home dose 3. Paroxysmal A-fib flutter – Patient currently in sinus rhythm not a candidate for systemic anticoagulation given his Mickey vas 2 score of 41 she is on aspirin 4. Depression with anxiety – Patient is on escitalopram as well as alprazolam did continue 5. Gout – Patient is on allopurinol 6. Hyperglycemia – Patient has a known diagnosis of prediabetes. Her hemoglobin A1c on admission was 6.0 will monitor 7. DVT prophylaxis – On enoxaparin Time spent in the patient's overall evaluation,decision-making process, review of diagnostic data, adjustment of management, discussion with other providers, nursing nursing and ancillary staff involved in patient's care documentation, 55 Minutes Advance planning; did discuss with the patient and family () regarding advanced directives as well as CODE STATUS. Did explain the various scenarios involved ( FULL CODE, DNR CCA, DNR CCA with no intubation, and DNR CC and what each meant) patient elected to be DNR CCA no intubation. Order was placed. Time spent on discussion 16 minutes. Charges/Coding Multi Select Codes Visit Charges Visit Charges: 69584 Init Hosp L2 Hospitalists' Procedures Procedures: 33040 Advncd Care Plan 30 Min
[2025-05-26 09:12] LABS: AST(SGOT) 19 U/L (<=31); Alanine Aminotransfer ALT/SGPT 29 U/L (<=34); Albumin, Serum 4.3 g/dL (3.4-4.8); Alkaline Phosphatase 52 U/L (35-104); Bilirubin, Direct 0.10 mg/dL (0.00-0.30); Globulin 2.7 g/dL (2.2-4.2)
--- NOTE | 2025-05-26 09:25 | ECHOD_ITS ---
Reason For Study Reason For Study: TIA/CVA Procedure This was a 2D Doppler, Color Flow transthoracic echocardiogram. Exam performed portable in patient room. Left Ventricle Normal LV size. The left ventricular ejection fraction is 60 %. Normal diastology for age. No regional wall motion abnormalities noted. Right Ventricle Normal RV size. Normal systolic function. Atria The left and right atria are normal. Bubble contrast study is positive for PFO. Mitral Valve Normal mitral valve. Trivial mitral valve insufficiency. Tricuspid Valve Normal tricuspid valve. Mild (1+) tricuspid valve insufficiency. Aortic Valve Trisinus/trileaflet aortic valve. Mild focal aortic valve thickening. Pulmonic Valve Normal pulmonic valve. Trivial pulmonic valve insufficiency. Great Vessels Mildly calcified aortic root. Normal sized aortic root. Pericardium/Pleural No pericardial effusion. Medication Performed a rapid injection of agitated mix of 9 cc saline and 1cc air to assess for atrial septal defect. MMode/2D Measurements & Calculations LVIDd: 4.0 cm IVSd: 1.0 cm LVOT diam: 1.9 cm LVIDs: 2.4 cm LVPWd: 0.85 cm RVDd: 3.1 cm FS: 40.3 % LVOT area: 2.8 cm2 asc Aorta Diam: 3.3 cm LAV(MOD-bp): 41.2 ml LVAd ap4: 22.3 cm2 LAV(MOD-bp) Indexed: 22.3 ml/m2 LVLd ap4: 7.5 cm LAV(MOD-sp2): 41.2 ml EDV(MOD-sp4): 53.0 ml LAV(MOD-sp4): 38.8 ml EDV(sp4-el): 56.3 ml LVAs ap4: 9.9 cm2 LVLs ap4: 5.9 cm ESV(MOD-sp4): 14.9 ml ESV(sp4-el): 14.2 ml EF(MOD-sp4): 71.9 % EF(sp4-el): 74.9 % LVAd ap2: 20.9 cm2 SV(MOD-sp4): 38.1 ml SV(MOD-sp2): 34.9 ml LVLd ap2: 7.3 cm SI(MOD-sp4): 20.6 ml/m2 SI(MOD-sp2): 18.9 ml/m2 EDV(MOD-sp2): 49.6 ml EDV(sp2-el): 50.9 ml LVAs ap2: 9.7 cm2 LVLs ap2: 5.9 cm ESV(MOD-sp2): 14.7 ml ESV(sp2-el): 13.5 ml EF(MOD-sp2): 70.3 % SV(sp4-el): 42.2 ml Ao sinus diam: 3.[address] Junction: 2.3 cm LA dimension(2D): 3.3 cm LA A4 area: 15.6 cm2 RA A4 area: 9.8 cm2 TAPSE: 2.0 cm Time Measurements MV dec time: 0.17 sec Doppler Measurements & Calculations MV E max valentino: 82.0 cm/sec Lat Peak E' Valentino: 10.7 cm/sec Med Peak E' Valentino: 10.0 cm/sec MV A max valentino: 81.1 cm/sec E/E' lat: 7.6 E/E' med: 8.2 MV E/A: 1.0 MV dec slope: 478.1 cm/sec2 Ao V2 max: 158.9 cm/sec LV V1 max: 109.3 cm/sec Ao max P.1 mmHg LV V1 max P.8 mmHg Ao V2 mean: 99.7 cm/sec LV V1 mean P.4 mmHg Ao mean P.6 mmHg LV V1 mean: 73.0 cm/sec Ao V2 VTI: 35.8 cm LV V1 VTI: 25.0 cm AV (velocity ratio): 0.70 JOSE D(I,D): 2.0 cm2 JOSE D(V,D): 1.9 cm2 SV(LVOT): 70.6 ml PA V2 max: 94.8 cm/sec TR max valentino: 195.6 cm/sec TR max P.4 mmHg ECHO/Echo Complete Interpretation Summary The left ventricular ejection fraction is 60 %. Normal diastology for age. Mild focal aortic valve thickening. Mildly calcified aortic root. Bubble contrast study is positive for PFO. Mild (1+) tricuspid valve insufficiency. Ordering Physician: Juarez Farr Referring Physician: Dylon Saab Performed By: Melisa Hodges RDCS
[2025-05-26 09:51] LABS: Troponin T High Sens 2 HR 8 ng/L (<=14)
[2025-05-26] MEDS: 0.9% Normal Saline (1000mL) 1,000 ML 100 ML IV (11:29)
[2025-05-26 11:59] LABS: Troponin T High Sens 4 HR 8 ng/L (<=14)
--- NOTE | 2025-05-26 16:57 | DS.PCM_ITS ---
Providers Date of Admission: 05/26/25 Primary Care Physician: Dr. Dylon Saab, DO Consultations 05/26/25 09:25 Consult: Ophthamology Routine Consulting Provider: Mohit Jacobo Reason for Consult: Sudden visual loss EMERGENT Consult: No Notified: Yes Date Notified: 05/26/25 Time Notified: 08:13 Method of Notification: ED Physician Initiated Consult: Tele-Neurology Routine Consulting Provider: [facility] Reason for Consult: Acute Ischemic Stroke/TIA EMERGENT Consult: No Notified: Yes Date Notified: 05/26/25 Time Notified: 10:14 Method of Notification: Answering Service Nursing Unit Staff Notify [facility] of Tele-Neurology Consult: Yes Reason For Visit: SUSPECTED CVA Diagnosis Discharge Diagnosis (1) Sudden visual loss, left eye: Status: Acute Code(s): H53.132 - Sudden visual loss, left eye (2) Atrial flutter, paroxysmal: Status: Acute Code(s): I48.92 - Unspecified atrial flutter (3) Hyperlipidemia: Status: Acute Code(s): E78.5 - Hyperlipidemia, unspecified Qualifiers: Hyperlipidemia type: pure hypercholesterolemia Qualified Code(s): E 78.00 - Pure hypercholesterolemia, unspecified Plan Patient is a 64-year-old lady presented with sudden visual loss in the left eye 1. Visual loss in the left eye – Differential diagnoses include central retinal artery occlusion. Patient admitted to a monitored bed as part of the management ordered MRI as well as CTA of the head and neck all of which so far negative to date. 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 Hinton had been consulted from the ED will await his recommendation. Ordered 2D echo patient started on clopidogrel in addition to her aspirin. Consult was also placed to [facility] – Patient MRI was negative for acute CVA case was discussed with information director plans for patient to follow-up in the office. 2D echo demonstrated PFO patient already on aspirin did continue 2. Dyslipidemia –Patient is on statin therapy, continued at home dose 3. Paroxysmal A-fib flutter – Patient currently in sinus rhythm not a candidate for systemic anticoagulation given his Mickey vas 2 score of 41 she is on aspirin 4. Depression with anxiety – Patient is on escitalopram as well as alprazolam did continue 5. Gout – Patient is on allopurinol 6. Hyperglycemia – Patient has a known diagnosis of prediabetes. Her hemoglobin A1c on admission was 6.0 will monitor 7. DVT prophylaxis – On enoxaparin Time spent spent in the patient's overall evaluation, coordination of care, decision-making process, review of diagnostic data, adjustment of management, discussion with other providers, nursing nursing and ancillary staff involved in patient's care documentation, 85 Minutes Medications at Discharge Home Medications allopurinol 100 mg tablet 100 mg PO DAILY 02/14/25 alprazolam 1 mg tablet 1 - 2 mg PO QHS PRN PRN insomnia 02/14/25 escitalopram oxalate 20 mg tablet 20 mg PO DAILY 02/14/25 cholecalciferol (vitamin D3) 125 mcg (5,000 unit) capsule 125 mcg PO QDAY 04/02/25 multivitamin 1 tab PO QDAY 04/02/25 aspirin 81 mg chewable tablet (Aspirin Childrens) 1 tab PO DAILY 05/26/25 clopidogrel 75 mg tablet 75 mg PO DAILY 60 days #60 tabs 05/26/25 rosuvastatin 40 mg tablet (Crestor) 40 mg PO DAILY #60 tabs 05/26/25 Physical Exam Narrative GENERAL: cooperative HEENT: Atraumatic; normocephalic, complete visual loss in the left eye EYES; Anicteric, Normal Conjunctiva NECK; supple, normal thyroid, RESPIRATORY: Diminished to auscultation CARDIOVASCULAR: Regular S1 S2, GI: soft, normoactive bowel sounds, : No Renal angle tenderness; EXTREMITIES: No edema, no clubbing, MUSCULOSKELETAL: no muscle wasting NEURO: Awake; no lateralizing signs. SKIN: No Rash PSYCH; Flat affect Weight / BMI Weight Weight: 78.5 kg Body Mass Index (BMI) 29.7 ABG / Lab / Microbiology Data 05/26/25 07:02 05/26/25 07:02 Laboratory: Laboratory Results - last 24 hr 05/26/25 07:01: POC Glucose 126 H 05/26/25 07:02: WBC 8.2, RBC 4.30, Hgb 13.0, Hct 39.9, MCV 92.8, MCH 30.2, MCHC 32.6, RDW Std Deviation 41.2, RDW Coeff of Ramy 12.2, Plt Count 230, MPV 10.2, Immature Gran % (Auto) 0.500, Neut % (Auto) 47.9, Lymph % (Auto) 40.3, [place] % (Auto) 6.9, Eos % (Auto) 3.4, Baso % (Auto) 1.0, Absolute Neuts (auto) 3.9, Absolute Lymphs (auto) 3.29, Nucleated RBC % 0, PT 12.4, INR 0.9, APTT 26.2, Sodium 142, Potassium 4.3, Chloride 106, Carbon Dioxide 27.7, Anion Gap 8, BUN 16, Creatinine 0.72, Estim Creat Clear Calc 82.75, Est GFR (MDRD) Non-Af 95, B UN/Creatinine Ratio 21.8 H, Glucose 150 H, Hemoglobin A1c 6.0 H, Calcium 9.4, Total Bilirubin 0.26, Direct Bilirubin 0.10, AST 19, ALT 29, Alkaline Phosphatase 52, Troponin T High Sens 7, Total Protein 7.0, Albumin 4.3, Globulin 2.7 05/26/25 09:20: Troponin T Hi Sens 2 Hr 8 05/26/25 11:00: Troponin T Hi Sens 4Hr 8 Radiography Diagnostic Testing: Radiology Impression Brain CT 05/26/25 07:01 IMPRESSION: No acute intracranial pathology. Reading Location: [facility] Head/Neck CTA 05/26/25 07:01 IMPRESSION: Calcified and soft plaque are noted at the ICA origin on the left with 25% diameter stenosis Reading [facility] Brain MRI 05/26/25 08:14 IMPRESSION: Unremarkable MRI of the brain without contrast. Reading Location: [id number] Echocardiogram 05/26/25 09:25 Interpretation Summary The left ventricular ejection fraction is 60 %. Normal diastology for age. Mild focal aortic valve thickening. Mildly calcified aortic root. Bubble contrast study is positive for PFO. Mild (1+) tricuspid valve insufficiency. Ordering Physician: Juarez Farr Referring Physician: Dylon Saab Performed By: Melisa Hodges RDCS D/C Instructions Discharge Activity: Return to Normal Activity Call your doctor if you observe: Fever of 101 or Higher, Shortness of breath, Fainting spells and Chest pain DC O2, CPAP, BIPAP Needs Home O2 Discharge instructions: No Meaningful Use Info Meaningful Use Meaningful Use Diagnoses (Choose all that apply): None applicable Discharge Plan Admission Admit Date/Time: 05/26/25 08:07 Attending Provider: Juarez Farr Primary Care Provider: Dylon Saab Consulting Providers: Mohit Jacobo; Govind Arrieta; Sravanthi Jimenez; Jacquie Sabillon; Andressa Daley; Ngoc Hernandez; Trent Camilo; Nancy Reyes; Santana Ramirez; Nelson Rios; Keagan Drake; Samara Euceda; Sharon Lee; Jabari Armas; Nanda Jackson; Ray Valles; Madeline Hooper; Joe Dugan; Gerda Canales; [place]; Josie Felix; Charmaine Mattson Discharge Orders/Prescriptions Prescriptions: New rosuvastatin [Crestor] 40 mg tablet 40 mg PO DAILY Qty: 60 0RF clopidogrel 75 mg Tablet 75 mg PO DAILY 60 Days Qty: 60 0RF Continued multivitamin Tablet 1 tab PO QDAY cholecalciferol (vitamin D3) 125 mcg (5,000 unit) capsule 125 mcg PO QDAY aspirin [Aspirin Childrens] 81 mg tablet,chewable 1 tab PO DAILY alprazolam 1 mg tablet 1 - 2 mg PO QHS PRN PRN (Reason: insomnia) allopurinol 100 mg tablet 100 mg PO DAILY escitalopram oxalate 20 mg tablet 20 mg PO DAILY Discontinued rosuvastatin 10 mg tablet 10 mg PO QDAY Qty: 30 3RF Referrals / Follow Up: Dylon Saab DO [Primary Care Provider, Family Practice] - Within 1 Week Mohit Jacobo MD [Med Staff - Active Staff, Surgery] - 05/27/25 Disposition Disposition (needs filled in before D/C Order can be placed): Home, Self Care Charges/Coding Visit Charges OBSV E&M: 16963 Observ/hosp same date L3
== END 2025-05-26 18:33 | disposition home or self-care (01) ==
LOC: ED 07:31 → PCU 08:22
PROVIDERS: Emergency Medicine; Admitting Provider Internal Medicine; Emergency Provider Emergency Medicine; PCP Family Medicine; Visit Provider Internal Medicine
DX: H53.132 Sudden visual loss, left eye (principal); I48.92 Unspecified atrial flutter; I10 Essential (primary) hypertension; Z79.82 Long term (current) use of aspirin; E78.00 Pure hypercholesterolemia, unspecified; R20.2 Paresthesia of skin; Z79.899 Other long term (current) drug therapy; I08.2 Rheumatic disorders of both aortic and tricuspid valves; M10.9 Gout, unspecified; F41.8 Other specified anxiety disorders; R73.03 Prediabetes; Z66 Do not resuscitate; R94.31 Abnormal electrocardiogram [ECG] [EKG]
CPT/HCPCS: 36415; 70450; 70496; 70498; 70551; 80048; 80076; 82962; 83036; 84484; 85025; 85610; 85730; 93005; 93306; 96360; 96361; 96372; 97161; 97165; 99221; 99285; Q9967; A4216; G0378

== ENCOUNTER → 2025-05-27 | Outpatient (CLI) | payer BC, SELFPAY ==
[2025-05-27 15:17] LABS: Hematocrit 38.9 % (37-47); Hemoglobin 13.1 g/dL (12.0-15.0); Mean Corp Hgb Conc 33.7 g/dL (32-36); Mean Corpuscular Volume 90.9 fL (81-99); Mean Platelet Vol. 10.5 fl (6.2-12.0); Platelet Count 243 K/mm3 (150-450); RBC Distribution Width CV 12.2 % (11.6-14.6); RBC Distribution Width SD 40.3 fl (35.1-43.9); Red Blood Count 4.28 M/mm3 (4.2-5.4); White Blood Count 8.4 K/mm3 (4.4-11.0)
[2025-05-27 15:32] LABS: CRP < 3.00 mg/L (0.0-3.0)
== END | disposition home or self-care (01) ==
LOC: MTLAB 11:43
PROVIDERS: PCP Family Medicine; Referring Provider Ophthalmology; Visit Provider Ophthalmology
DX: R51.9 Headache, unspecified (principal)
CPT/HCPCS: 36415; 85027; 85652; 86140

== ENCOUNTER → 2025-05-28 | Outpatient (CLI) | payer BC, SELFPAY ==
[2025-05-28 10:49] LABS: AST(SGOT) 20 U/L (<=31); Alanine Aminotransfer ALT/SGPT 28 U/L (<=34); Albumin, Serum 4.5 g/dL (3.4-4.8); Alkaline Phosphatase 53 U/L (35-104); Bilirubin, Direct 0.14 mg/dL (0.00-0.30); Cholesterol 161 mg/dL (<=200); Globulin 3.0 g/dL (2.2-4.2); Low Density Lipoprotein Calc. 89 mg/dL; Triglycerides 149 mg/dL; Very Low Density Lipoprotein 30 mg/dL (5-40); cholesterol:hdl ratio screen 3.51
== END | disposition home or self-care (01) ==
LOC: MTLAB 08:45
PROVIDERS: PCP Family Medicine; Referring Provider Internal Medicine Cardiovascular Disease; Visit Provider Internal Medicine Cardiovascular Disease
DX: E78.5 Hyperlipidemia, unspecified (principal)
CPT/HCPCS: 36415; 80061; 80076